=== PATIENT | female | born 1965 | race Caucasian/White ===

== ENCOUNTER 2016-12-03 11:28 | Inpatient (IN) | payer OTHER ==
[2016-12-03] MEDS ORDERED: IBUPROFEN IV 600 MG in SODIUM CHLORIDE 0.9% 250 ML IV STA (11:56)
[2016-12-03] MEDS ORDERED: ACETAMINOPHEN IV (For NPO) 1,000 MG in EMPTY BAG 1 BAG IVPB STA (11:56)
[2016-12-03] MEDS ORDERED: LEVOFLOXACIN 750MG-D5W PMX 750 MG in DEXTROSE/WATER 1 150ML.BAG IVPB STA (11:56)
--- NOTE | 2016-12-03 11:58 | ED ---
General Adult HPI - General Chief complaint: Fever Stated complaint: Dx bronchitis, not feeling better, abdominal pain Time Seen by Provider: 12/03/16 11:35 Source: patient, family, RN notes reviewed Mode of arrival: wheelchair Limitations: no limitations - History of Present Illness Initial comments: This is a 51-year-old female who presents to the emergency Department complaining that the last 3 days she's had a fever congestion and a cough. Patient states she was given antibiotics for bronchitis but she seems to be getting worse. Patient states her whole body aches she is unable to eat she does have a sore throat as well. Patient denies any lightheadedness dizziness or near syncopal episode. Patient denies any chest pain or palpitations. Patient denies any abdominal pain patient states she does vomit occasionally but only after a coughing fit. Patient denies any diarrhea. Patient denies any dysuria hematuria urinary frequency. - Related Data Home Medications Medication Instructions Recorded Confirmed Azithromycin [Zithromax Z-pack] See Taper PO DIRECTED 12/03/16 12/03/16 Ergocalciferol [Vitamin D2] 50,000 unit PO TABARES 12/03/16 12/03/16 Ibuprofen [Motrin] 200 mg PO Q6HR PRN 12/03/16 12/03/16 Naltrexone HCl/Bupropion HCl 1 tab PO DAILY 12/03/16 12/03/16 [Contrave ER 8-90 mg Tablet] Allergies Allergy/AdvReac Type Severity Reaction Status Date / Time No Known Allergies Allergy Verified 12/03/16 12:45 Review of Systems ROS Statement: Those systems with pertinent positive or pertinent negative responses have been documented in the HPI. ROS Other: All systems not noted in ROS Statement are negative. Past Medical History Additional Past Medical History / Comment(s): vit D deficientcy. diet pill History of Any Multi-Drug Resistant Organisms: None Reported Past Surgical History: Section, Cholecystectomy Past Psychological History: No Psychological Hx Reported Smoking Status: Current every day smoker Past Alcohol Use History: None Reported Past Drug Use History: None Reported General Exam - General Exam Comments Initial Comments: GENERAL: Patient is well-developed and well-nourished. Patient is nontoxic and well- hydrated and is in moderate distress. ENT: Neck is soft and supple. No significant lymphadenopathy is noted. Oropharynx is clear. Moist mucous membranes. Neck has full range of motion without eliciting any pain. EYES: The sclera were anicteric and conjunctiva were pink and moist. Extraocular movements were intact and pupils were equal round and reactive to light. Eyelids were unremarkable. PULMONARY: Patient has crackles in the right middle and lower lobes CARDIOVASCULAR: Patient is tachycardic ABDOMEN: Soft and nontender with normal bowel sounds. No palpable organomegaly was noted. There is no palpable pulsatile mass. SKIN: Skin is clear with no lesions or rashes and otherwise unremarkable. NEUROLOGIC: Patient is alert and oriented x3. Cranial nerves II through XII are grossly intact. Motor and sensory are also intact. Normal speech, volume and content. Symmetrical smile. MUSCULOSKELETAL: Normal extremities with adequate strength and full range of motion. No lower extremity swelling or edema. No calf tenderness. LYMPHATICS: No significant lymphadenopathy is noted PSYCHIATRIC: Normal psychiatric evaluation. Normal interpersonal interactions appears functionally intact in deals appropriately with others. No signs of depression. No signs of anxiety. Limitations: no limitations Course Vital Signs 12/03/16 12/03/16 12/03/16 11:38 12:27 13:27 Temperature 103.7 F H 101.1 F H Pulse Rate 95 75 Respiratory 20 18 20 Rate Blood Pressure 131/55 99/54 O2 Sat by Pulse 96 95 Oximetry Medical Decision Making - Medical Decision Making EKG shows normal sinus rhythm at 86 bpm WV interval is 148 QRS is 88 QT interval 368 QTC is 440. Patient's EKG shows no ST segment elevation or depression or T-wave abnormalities noted X-ray shows right lower lobe pneumonia. Started the patient on Levaquin. I gave the patient 2 L of fluid. About the patient's fever down with Motrin Tylenol and the patient states she feels considerably better. - Lab Data Result diagrams: 12/03/16 11:50 12/03/16 11:50 Lab Results 12/03/16 12/03/16 12/03/16 Range/Units 11:50 11:50 11:50 WBC 10.9 H (3.8-10.6) k/uL RBC 4.99 (3.80-5.40) m/uL Hgb 14.5 (11.4-16.0) gm/dL Hct 42.0 (34.0-46.0) % MCV 84.2 (80.0-100.0) fL MCH 29.0 (25.0-35.0) pg MCHC 34.4 (31.0-37.0) g/dL RDW 13.6 (11.5-15.5) % Plt Count 270 (150-450) k/uL Neutrophils % 81 % Lymphocytes % 12 % Monocytes % 6 % Eosinophils % 0 % Basophils % 0 % Neutrophils # 8.7 H (1.3-7.7) k/uL Lymphocytes # 1.3 (1.0-4.8) k/uL Monocytes # 0.6 (0-1.0) k/uL Eosinophils # 0.0 (0-0.7) k/uL Basophils # 0.0 (0-0.2) k/uL PT (9.0-12.0) sec INR (<1.1) APTT (22.0-30.0) sec Sodium 137 (137-145) mmol/L Potassium 3.9 (3.5-5.1) mmol/L Chloride 105 (98-107) mmol/L Carbon Dioxide 20 L (22-30) mmol/L Anion Gap 12 mmol/L BUN 12 (7-17) mg/dL Creatinine 0.62 (0.52-1.04) mg/dL Est GFR (MDRD) Af Amer >60 (>60 ml/min/1.73 sqM) Est GFR (MDRD) Non-Af >60 (>60 ml/min/1.73 sqM) Glucose 116 H (74-99) mg/dL Plasma Lactic Acid Wilmer (0.7-2.0) mmol/L Calcium 8.9 (8.4-10.2) mg/dL Total Bilirubin 0.9 (0.2-1.3) mg/dL AST 27 (14-36) U/L ALT 29 (9-52) U/L Alkaline Phosphatase 94 (38-126) U/L Total Creatine Kinase 116 (30-135) U/L CK-MB (CK-2) 0.3 (0.0-2.4) ng/mL CK-MB (CK-2) Rel Index 0.3 Troponin I <0.012 (0.000-0.034) ng/mL Total Protein 7.9 (6.3-8.2) g/dL Albumin 4.2 (3.5-5.0) g/dL Influenza Type A RNA (Not Detectd) Influenza Type B (PCR) (Not Detectd) 12/03/16 12/03/16 12/03/16 Range/Units 11:50 11:50 12:12 WBC (3.8-10.6) k/uL RBC (3.80-5.40) m/uL Hgb (11.4-16.0) gm/dL Hct (34.0-46.0) % MCV (80.0-100.0) fL MCH (25.0-35.0) pg MCHC (31.0-37.0) g/dL RDW (11.5-15.5) % Plt Count (150-450) k/uL Neutrophils % % Lymphocytes % % Monocytes % % Eosinophils % % Basophils % % Neutrophils # (1.3-7.7) k/uL Lymphocytes # (1.0-4.8) k/uL Monocytes # (0-1.0) k/uL Eosinophils # (0-0.7) k/uL Basophils # (0-0.2) k/uL PT 11.3 (9.0-12.0) sec INR 1.1 (<1.1) APTT 30.7 H (22.0-30.0) sec Sodium (137-145) mmol/L Potassium (3.5-5.1) mmol/L Chloride (98-107) mmol/L Carbon Dioxide (22-30) mmol/L Anion Gap mmol/L BUN (7-17) mg/dL Creatinine (0.52-1.04) mg/dL Est GFR (MDRD) Af Amer (>60 ml/min/1.73 sqM) Est GFR (MDRD) Non-Af (>60 ml/min/1.73 sqM) Glucose (74-99) mg/dL Plasma Lactic Acid Wilmer 1.7 (0.7-2.0) mmol/L Calcium (8.4-10.2) mg/dL Total Bilirubin (0.2-1.3) mg/dL AST (14-36) U/L ALT (9-52) U/L Alkaline Phosphatase (38-126) U/L Total Creatine Kinase (30-135) U/L CK-MB (CK-2) (0.0-2.4) ng/mL CK-MB (CK-2) Rel Index Troponin I (0.000-0.034) ng/mL Total Protein (6.3-8.2) g/dL Albumin (3.5-5.0) g/dL Influenza Type A RNA Not Detected (Not Detectd) Influenza Type B (PCR) Not Detected (Not Detectd) Disposition Clinical Impression: Pneumonia Disposition: ADMITTED IP TO THIS HOSP Referrals: Elmer Maxwell MD [Primary Care Provider] - 1-2 days Time of Disposition: 14:05
[2016-12-03] MEDS: SODIUM CHLORIDE 0.9% 500 ML IV SCH ×4 (12:08→13:25)
[2016-12-03 12:15] LABS: Basophils % (A) 0 %; CH 29.4; CHCM 35.1; Eosinophils % (A) 0 %; HDW 2.71; HGB 14.5 gm/dL (11.4-16.0); Luc # (Auto) 0.17; Luc % (Auto) 2; Lymphocytes # (A) 1.3 k/uL (1.0-4.8); Lymphocytes % (A) 12 %; MCHC 34.4 g/dL (31.0-37.0); MCV 84.2 fL (80.0-100.0); Mean Platelet Volume 6.9; Monocytes # (A) 0.6 k/uL (0-1.0); Monocytes % (A) 6 %; Neutrophils # (A) 8.7 k/uL (1.3-7.7); Neutrophils % (A) 81 %; RBC 4.99 m/uL (3.80-5.40); RDW 13.6 % (11.5-15.5); WBC 10.9 k/uL (3.8-10.6); WBC (Perox) 9.93
[2016-12-03 12:25] LABS: ALT 29 U/L (9-52); AST 27 U/L (14-36); Alkaline Phosphatase 94 U/L (38-126); Anion Gap 12 mmol/L; Blood Urea Nitrogen 12 mg/dL (7-17); Calcium 8.9 mg/dL (8.4-10.2); Carbon Dioxide 20 mmol/L (22-30); Chloride 105 mmol/L (98-107); Glucose 116 mg/dL (74-99); INR 1.1 (<1.1); Non-African American GFR(MDRD) >60 (>60 ml/min/1.73 sqM); Partial Thromboplastin Time 30.7 sec (22.0-30.0); Potassium 3.9 mmol/L (3.5-5.1); Prothrombin Time 11.3 sec (9.0-12.0); Sodium 137 mmol/L (137-145); Total Bilirubin 0.9 mg/dL (0.2-1.3); Total Protein 7.9 g/dL (6.3-8.2)
--- NOTE | 2016-12-03 12:35 | XR ---
EXAMINATION TYPE: XR chest 2V DATE OF EXAM: 12/03/2016 COMPARISON: NONE TECHNIQUE: PA and lateral views submitted. HISTORY: Fever FINDINGS: The lungs are clear and there is no pneumothorax, pleural effusion, or focal pneumonia. Subsegmenta l changes involving the right lung base compatible with scarring or atelectasis. Hypertrophic change of the spine. IMPRESSION: 1. No acute process.
[2016-12-03 12:52] LABS: Creatine Kinase 116 U/L (30-135)
[2016-12-03 13:03] LABS: Creatine Kinase MB 0.3 ng/mL (0.0-2.4); Troponin I <0.012 ng/mL (0.000-0.034)
[2016-12-03] MEDS ORDERED: PNEUMONIA PROTOCOL UTILIZED 1 EACH MISC PO PRN (14:09)
[2016-12-03 15:24] VITALS: RESP 16; TEMP 98.7
[2016-12-03 15:25] VITALS: BP 100/69; PULSE 70
[2016-12-03 15:33] VITALS: BMI 32.9
[2016-12-03] MEDS ORDERED: SODIUM CHLORIDE 0.9% 1,000 ML IV ONE (16:13)
[2016-12-03] MEDS ORDERED: SODIUM CHLORIDE 0.9% 1,000 ML IV SCH (16:15)
[2016-12-03 17:51] LABS: Appearance,Urine Clear (Clear); Bilirubin,Urine Negative (Negative); Glucose,Urine (UA) Negative (Negative); Ketones,Urine Negative (Negative); Leukocyte Esterase,Urine Negative (Negative); Mucus,Urine Rare /hpf; Nitrite,Urine Negative (Negative); Particle Count 2320; Protein,Urine Trace (Negative); RBC,Urine 1 /hpf (0-5); Squamous Epithelial Cell,Urine 2 /hpf (0-4); UA Billing (MACRO vs. MICRO) MICRO; Urobilinogen,Urine <2.0 mg/dL (<2.0); WBC,Urine 1 /hpf (0-5)
--- NOTE | 2016-12-04 08:35 | HP ---
DATE OF ADMISSION: This dictation is both H&P and discharge summary. Patient is a 51-year-old pleasant female who came into the emergency department with fever. Patient apparently at some point of time had a high-grade fever. The patient's symptoms have been going on for about a week. Patient had fever, cough, congestion that has been going on for about a week. The patient was seen in [facility], was diagnosed with bronchitis and was sent home on azithromycin. Patient did not have any significant improvement. When asked to come back to the hospital, patient came back to the hospital this time and patient had a chest x-ray that showed some atelectasis. Did not show any pneumonic process. Patient did have a low-grade fever and patient has severe sinusitis like symptoms. The patient's influenza test is negative. Patient is undergoing evaluation. Group B strep cultures were being obtained. The patient initially wanted to send her home on Augmentin, but patient felt much better with levofloxacin IV because of which I am discharging her on levofloxacin for 7 more days for severe bronchitis, sinusitis and patient does have rhonchorous breath sounds and minimal expiratory wheezing, for which I am going to discharge her. The patient may have undiagnosed chronic obstructive pulmonary disease for which patient will need outpatient pulmonary function tests. Patient will be discharged on Symbicort inhalational along with albuterol. Patient denied any lightheadedness. The patient was coughing with greenish sputum. Does have sore throat. Denied any dysuria, hematuria or urinary frequency. Home medications include: Erythromycin, ergocalciferol, ibuprofen, naltrexone. ROS: All other systems were reviewed and were negative. ALLERGIES: No known drug allergies. PAST MEDICAL HISTORY: Significant for vitamin deficiency, section, cholecystectomy. The patient does smoke. Denied any alcohol abuse or any drug abuse. FAMILY HISTORY: Significant for some kind of blood disorder. PHYSICAL EXAMINATION: Temperature 98.7, pulse of 78, respiratory rate of 16. Blood pressure is 108/51, saturating at 99% on room air. GENERAL: The patient is alert and oriented x3, not in any acute distress. Well developed, well nourished. HEENT: Patient does have severe sinus symptoms. Patient has pharyngeal erythema. Patient does not have any tonsillar exudate. Patient has tenderness in the maxillary sinusitis area. Patient looks to be congested. CARDIOVASCULAR: S1 and S2 present. No murmurs, rubs, or gallops. PULMONARY: Rhonchus breath sounds bilaterally, minimal expiratory wheezing was appreciated. Fairly good air entry into bilateral lung george. No crackles were appreciated. ABDOMEN: Soft, nontender, nondistended, normoactive bowel sounds. No palpable organomegaly. MUSCULOSKELETAL: No joint swelling or deformity. EXTREMITIES: No cyanosis, clubbing, or pedal edema. NEUROLOGICAL: Gross neurological examination did not reveal any focal deficits. SKIN: No rashes. LABORATORY DATA: CBC and CMP are abnormal for elevated WBC count of 10,900. Patient had a low-grade fever here in the hospital. Chest x-ray as mentioned above. ASSESSMENT AND PLAN: 1. Severe bronchitis with a possibility of mild chronic obstructive pulmonary disease with very minimal exacerbation. I do not believe patient will need any other systemic steroids. Patient since improved with levofloxacin will be discharged on that. 2. Severe bronchitis and severe sinusitis. Patient failed outpatient therapy with erythromycin. Will be discharged on levofloxacin 500 mg for 7 days. Follow up with Dr. Elmer Maxwell as an outpatient. Patient will be discharged on famotidine for GI prophylaxis as well. 3. Leukocytosis due to sinusitis and bronchitis as mentioned above. 4. Nicotine cessation counseling was provided. This dictation is both H&P and discharge summary. MTDD
[2016-12-04] MEDS ORDERED: LEVOFLOXACIN 750MG-D5W PMX 750 MG in DEXTROSE/WATER 1 150ML.BAG IVPB SCH (12:00)
== END 2016-12-03 17:52 | disposition home or self-care (01) | DRG 202 ==
LOC: EC 11:28 → 5MS5E 14:09
PROVIDERS: ADMIT Hospitalist; ATTEND Hospitalist
DX: J40 Bronchitis, not specified as acute or chronic (principal); J98.11 Atelectasis; J44.1 Chronic obstructive pulmonary disease with (acute) exacerbation; F17.200 Nicotine dependence, unspecified, uncomplicated; J32.9 Chronic sinusitis, unspecified; J02.9 Acute pharyngitis, unspecified; Z79.899 Other long term (current) drug therapy
CPT/HCPCS: 36415; 71020; 80048; 80053; 81001; 82550; 82553; 83036; 83605; 84484; 85025; 85027; 85610; 85730; 87040; 87081; 87086; 87502; 93005; 94640; 94760; 96365; 96367; 96372; 96375; 99285

== ENCOUNTER 2016-12-04 19:53 | Inpatient (IN) | payer OTHER ==
[2016-12-04] MEDS ORDERED: ACETAMINOPHEN TAB 500 MG TAB PO STA (20:48)
[2016-12-04] MEDS ORDERED: LEVOFLOXACIN 500MG-D5W PMX 500 MG in DEXTROSE/WATER 1 100ML.BAG IVPB STA (21:10)
[2016-12-04] MEDS ORDERED: IPRATROPIUM-ALBUTEROL 3 ML NEB INHALATION STA (21:12)
[2016-12-04 21:14] LABS: Basophils % (A) 0 %; CH 29.1; Eosinophils % (A) 0 %; HCT 35.7 % (34.0-46.0); HDW 2.86; HGB 12.3 gm/dL (11.4-16.0); Luc # (Auto) 0.15; Luc % (Auto) 2; Lymphocytes # (A) 1.3 k/uL (1.0-4.8); Lymphocytes % (A) 15 %; MCH 28.6 pg (25.0-35.0); MCHC 34.3 g/dL (31.0-37.0); MCV 83.5 fL (80.0-100.0); Monocytes # (A) 0.3 k/uL (0-1.0); Monocytes % (A) 4 %; Neutrophils # (A) 6.5 k/uL (1.3-7.7); Neutrophils % (A) 79 %; RBC 4.28 m/uL (3.80-5.40); RDW 13.5 % (11.5-15.5); WBC 8.3 k/uL (3.8-10.6); WBC (Perox) 8.72
[2016-12-04] MEDS ORDERED: NALOXONE 0.4 MG/ML 1 ML VIAL IV PRN (21:15)
--- NOTE | 2016-12-04 21:15 | ED ---
General Adult HPI - General Chief complaint: Fever Stated complaint: Fever/Congestion Source: patient, family, RN notes reviewed, old records reviewed Mode of arrival: ambulatory Limitations: no limitations - History of Present Illness Initial comments: Chief complaint history of present illness this is a 51-year-old female who was in hospital for one day 2 days ago. at That time she was diagnosed with severe bronchitis and sinusitis. She improved to the 24 hours she was here she was given the option of going home if she is able to walk the length of the hallway which she was able to do without difficulties and decided to go home. She was placed on Levaquin to go home with but because the pharmacies were closed she was unable to fill it. She had just earlier completed a course of a Zithromax and. She presents back tonight with a cough, fever, and exacerbation of her COPD type symptoms. - Related Data Home Medications Medication Instructions Recorded Confirmed Ergocalciferol [Vitamin D2] 50,000 unit PO TABARES 12/03/16 12/04/16 Ibuprofen [Motrin] 200 mg PO Q6HR PRN 12/03/16 12/04/16 Naltrexone HCl/Bupropion HCl 1 tab PO DAILY 12/03/16 12/04/16 [Contrave ER 8-90 mg Tablet] Previous Rx's Medication Instructions Recorded Albuterol Inhaler [Ventolin Hfa 1 - 2 puff INHALATION Q6HR PRN #1 12/03/16 Inhaler] inhaler Budesonide-Formot 160-4.5 Mcg 2 puff INHALATION BID #1 inhaler 12/03/16 [Symbicort 160-4.5 Mcg Inhaler] Famotidine [Pepcid] 20 mg PO BID #30 tablet 12/03/16 Levofloxacin [Levaquin] 500 mg PO DAILY #7 tab 12/03/16 Allergies Allergy/AdvReac Type Severity Reaction Status Date / Time No Known Allergies Allergy Verified 12/04/16 20:03 Review of Systems ROS Statement: Those systems with pertinent positive or pertinent negative responses have been documented in the HPI. Review of systems. Patient denies any headache or visual acuity changes of a sore throat which was negative for strep in the day. Denies chest pain but she has chest wall pain from coughing. She has persistent wheezing bilaterally and some crepitant rales on the right base. Abdominal muscles are tender from coughing. No peripheral edema. No other complaints of a neuro deficits. All systems are reviewed. Past medical problems significant for probable COPD. She has a vitamin D deficiency. Past history of pneumonia. Surgeries include a and cholecystectomy. Family history noncontributory. No known ALLERGIES. Patient quit smoking 3 days ago. Encouraged to stay on nonsmoker. ROS Other: All systems not noted in ROS Statement are negative. Past Medical History Additional Past Medical History / Comment(s): vit D deficientcy. diet pill. no medical history as of this date. pneumonia History of Any Multi-Drug Resistant Organisms: None Reported Past Surgical History: Section, Cholecystectomy Past Psychological History: No Psychological Hx Reported Smoking Status: Current every day smoker Past Alcohol Use History: None Reported Past Drug Use History: None Reported - Past Family History Father Family Medical History: Blood Disorder Mother Family Medical History: Dementia General Exam - General Exam Comments Initial Comments: General: The patient is awake and alert, complaining of a fever 102.3. Harsh cough, short of breath with the cough. Vital signs pulse 85 respiratory rate 20 pulse ox 97% room air blood pressure 100/57 Eye: Pupils are equal, round and reactive to light, extra-ocular movements are intact ; there is normal conjunctiva bilaterally. No signs of icterus. Ears, nose, mouth and throat: There are moist mucous membranes and no oral lesions. Sore uvula mildly red strep -2 days ago. Neck: The neck is supple, there is no tenderness , no anterior cervical lymphadenopathy.. Cardiovascular: There is a regular rate and rhythm. No murmur, rub or gallop is appreciated. Respiratory: Bilateral wheezing. Rare crepitant rales at the bases. Gastrointestinal: Soft, non-distended, non-tender abdomen without masses or organomegaly noted. Mild muscle discomfort with palpation from frequent coughing. There is no rebound or guarding present. No CVA tenderness. Bowel sounds are unremarkable. Back: Right flank pain with coughing. Musculoskeletal: Normal ROM, no tenderness, There is no pedal edema. There is no calf tenderness or swelling. Sensation intact. Pulses equal bilaterally 2+. Neurological: No neuro deficits Skin: Skin is warm and dry and no rashes or lesions are noted. Limitations: no limitations Course Vital Signs 12/04/16 20:00 Temperature 102.3 F H Pulse Rate 85 Respiratory 20 Rate Blood Pressure 109/57 O2 Sat by Pulse 97 Oximetry Medical Decision Making - Medical Decision Making The plant this time patient will be started on IV Levaquin. Given updrafts and IV steroids. Patient's fever was treated with Tylenol at this time. Should be readmitted to the hospital. Disposition Clinical Impression: COPD with acute exacerbation, Fever Disposition: ADMITTED IP TO THIS HOSP Condition: Fair Referrals: Elmer Maxwell MD [Primary Care Provider] - 1-2 days
[2016-12-04 21:22] LABS: ALT 35 U/L (9-52); AST 38 U/L (14-36); Alkaline Phosphatase 66 U/L (38-126); Anion Gap 9 mmol/L; Blood Urea Nitrogen 10 mg/dL (7-17); Carbon Dioxide 18 mmol/L (22-30); Chloride 109 mmol/L (98-107); Glucose 99 mg/dL (74-99); Non-African American GFR(MDRD) >60 (>60 ml/min/1.73 sqM); Potassium 3.5 mmol/L (3.5-5.1); Sodium 136 mmol/L (137-145); Total Bilirubin 0.6 mg/dL (0.2-1.3); Total Protein 6.1 g/dL (6.3-8.2)
[2016-12-04] MEDS ORDERED: methylPREDNISolone SOD SUCCI 125 MG/2 ML VIAL IM SCH (21:30)
[2016-12-04] MEDS: SODIUM CHLORIDE 0.9% 1,000 ML IV SCH (21:30)
--- NOTE | 2016-12-04 21:42 | XR ---
EXAMINATION TYPE: XR chest 2V DATE OF EXAM: 12/04/2016 9:26 PM COMPARISON: 12/03/2016 HISTORY: Congestion and cough TECHNIQUE: Frontal and lateral views of the chest are obtained. FINDINGS: There is linear density at the right lung base consistent with atelectasis. There is no he art failure. There is mild blunting of right costophrenic angle. Left lung is clear. Bony thorax is i ntact. IMPRESSION: There is atelectasis and pleural reaction at the right lung base that is worse than last exam. No heart failure.
[2016-12-04] MEDS ORDERED: methylPREDNISolone SOD SUCCI 125 MG/2 ML VIAL IVP SCH (21:46)
[2016-12-04 22:13] LABS: Appearance,Urine Clear (Clear); Bilirubin,Urine Negative (Negative); Glucose,Urine (UA) Negative (Negative); Ketones,Urine Negative (Negative); Leukocyte Esterase,Urine Negative (Negative); Mucus,Urine Rare /hpf; Nitrite,Urine Negative (Negative); Particle Count 3073; Protein,Urine 1+ (Negative); RBC,Urine 3 /hpf (0-5); Specific Gravity,Urine 1.016 (1.001-1.035); Squamous Epithelial Cell,Urine <1 /hpf (0-4); UA Billing (MACRO vs. MICRO) MICRO; Urobilinogen,Urine <2.0 mg/dL (<2.0); WBC,Urine 2 /hpf (0-5)
[2016-12-05] MEDS: methylPREDNISolone SOD SUCCI 125 MG/2 ML VIAL IVP SCH ×3 (05:13→21:46)
[2016-12-05 07:03] LABS: Glucose,Whole Blood 171 mg/dL (75-99)
[2016-12-05] MEDS: ACETAMINOPHEN TAB 325 MG TAB PO PRN ×2 (07:22→19:41)
[2016-12-05] MEDS: SODIUM CHLORIDE 0.9% 1,000 ML IV SCH ×2 (07:24→17:42)
[2016-12-05] MEDS ORDERED: PANTOPRAZOLE 40 MG/10 ML VIAL IV SCH (09:00)
[2016-12-05] MEDS: ALBUTEROL NEBULIZED 2.5 MG/3 ML INHALATION PRN ×2 (09:05→20:30)
[2016-12-05] MEDS: SYMBICORT 160-4.5 MCG INHALER INHALATION SCH ×2 (09:05→20:31)
[2016-12-05 11:49] LABS: Glucose,Whole Blood 243 mg/dL (75-99)
[2016-12-05] MEDS ORDERED: INSULIN LISPRO (humaLOG) 300 UNIT/3 ML VIAL SQ ONE (12:03)
[2016-12-05] MEDS: guaiFENesin SYRUP 100MG/5ML 200 MG/10 ML CUP PO PRN ×2 (16:30→22:30)
[2016-12-05 16:54] LABS: Glucose,Whole Blood 149 mg/dL (75-99)
[2016-12-05] MEDS: INSULIN LISPRO (humaLOG) 300 UNIT/3 ML VIAL SQ SCH ×2 (17:41→22:30)
[2016-12-05 20:54] LABS: Glucose,Whole Blood 135 mg/dL (75-99)
[2016-12-05] MEDS ORDERED: LEVOFLOXACIN 500MG-D5W PMX 500 MG in DEXTROSE/WATER 1 100ML.BAG IVPB SCH (21:30)
--- NOTE | 2016-12-05 21:43 | HP ---
DATE OF ADMISSION: 12/04/2016 Patient was recently admitted in the hospital, recently discharged from hospital. 51-year-old female who came in with fever, during that time I diagnosed with sinusitis and severe bronchitis. I gave her Levofloxacin and breathing treatments. Patient was discharged home, but patient at that time we verified pharmacy whether her pharmacy was opened or not. I was told her pharmacy was opened until 8:30 and patient was subsequently given prescriptions was discharged home. Since her pharmacy was closed by the time she went home, she never filled the scripts and apparently the staff call the staff here and they asked her to come back to the ER and patient came back to the ER. Patient was found to be high-grade fever and patient was subsequently admitted again with levofloxacin and systemic steroids inhalational treatments. Patient does have shortness of breath. REVIEW OF SYSTEMS: GENERAL: As described in HPI. HEENT: No recent visual problems or hearing problems. Denied any sore throat. CARDIOVASCULAR: No chest pain, orthopnea, PND, no palpitations, no syncope. PULMONARY: As described in HPI. GASTROINTESTINAL: No diarrhea, no nausea, no vomiting, no abdominal pain. Normoactive bowel sounds. NEUROLOGICAL: No headaches, no weakness, no numbness. HEMATOLOGICAL: Denies any bleeding or petechiae. GENITOURINARY: Denies any burning micturition, frequency, or urgency. MUSCULOSKELETAL/RHEUMATOLOGICAL: Denies any joint pain, swelling, or any muscle pain. ENDOCRINE: Denies any polyuria or polydipsia. The rest of the 14 point review of systems is negative. Home medications included: 1. Ergocalciferol. 2. Ibuprofen. 3. Naltrexone. Patient was discharged on albuterol, ipratropium, budesonide, famotidine and levofloxacin. ALLERGIES: No known drug allergies. PAST MEDICAL HISTORY: Significant for vitamin D deficiency. section, cholecystectomy. The patient does smoke. Denied any alcohol abuse or any drug abuse. FAMILY HISTORY: Some kind of blood disorder in the family. PHYSICAL EXAMINATION: Temperature 100.1, 24-hour T-max is 100.4, pulse of 84, respiratory rate of 18, blood pressure is 140/68, saturating at 96% on room air. GENERAL: The patient is alert and oriented x3, not in any acute distress. Well developed, well nourished. HEENT: Patient does have sinusitis, and patient does have pharyngeal erythema as well. Patient strep throat culture is negative for group B streptococcus. CARDIOVASCULAR: S1 and S2 present. No murmurs, rubs, or gallops. PULMONARY: Patient has rhonchus breath sounds. Minimal expiratory wheezing was appreciated. ABDOMEN: Soft, nontender, nondistended, normoactive bowel sounds. No palpable organomegaly. MUSCULOSKELETAL: No joint swelling or deformity. EXTREMITIES: No cyanosis, clubbing, or pedal edema. NEUROLOGICAL: Gross neurological examination did not reveal any focal deficits. SKIN: No rashes. LABORATORY DATA: CBC, CMP are abnormal for elevated chloride of 109, bicarbonate of 18, low bicarbonate is secondary to hyperchloremia and the chest x-ray showed atelectasis without any pneumonic process. ASSESSMENT AND PLAN: 1. Sepsis secondary to severe bronchitis and sinusitis. Patient does have atelectasis. No clear cut pneumonia. Patient improved with levofloxacin in the past because of which we will continue the same medication. Patient came back to the hospital as she is unable to fill the scripts at home. 2. Chronic obstructive pulmonary disease with some exacerbation. Patient will be on systemic steroids, inhalational treatments. 3. Hyperchloremia leading to metabolic acidosis. Patient continues to have hypochloremia on IV fluids and needs to switch it to half normal saline or lactated Ringer's. 4. ( ) Leukocytosis.
[2016-12-05] MEDS: LEVOFLOXACIN 500 MG TAB PO SCH (21:46)
[2016-12-06] MEDS: SODIUM CHLORIDE 0.9% 1,000 ML IV SCH (06:16)
[2016-12-06] MEDS: methylPREDNISolone SOD SUCCI 125 MG/2 ML VIAL IVP SCH (06:16)
[2016-12-06 07:37] LABS: Glucose,Whole Blood 136 mg/dL (75-99)
[2016-12-06] MEDS: ALBUTEROL NEBULIZED 2.5 MG/3 ML INHALATION PRN (07:43)
[2016-12-06] MEDS: SYMBICORT 160-4.5 MCG INHALER INHALATION SCH ×2 (07:44→20:00)
[2016-12-06] MEDS: PANTOPRAZOLE 40 MG TABLET PO SCH (08:16)
[2016-12-06] MEDS: INSULIN LISPRO (humaLOG) 300 UNIT/3 ML VIAL SQ SCH ×4 (08:16→22:00)
[2016-12-06 08:55] LABS: CH 28.6; CHCM 34.1; HCT 33.8 % (34.0-46.0); HDW 3.21; HGB 11.1 gm/dL (11.4-16.0); MCH 27.9 pg (25.0-35.0); MCV 84.6 fL (80.0-100.0); Mean Platelet Volume 6.9; RBC 3.99 m/uL (3.80-5.40); WBC 14.2 k/uL (3.8-10.6)
[2016-12-06 09:06] LABS: Anion Gap 9 mmol/L; Blood Urea Nitrogen 9 mg/dL (7-17); Calcium 7.9 mg/dL (8.4-10.2); Carbon Dioxide 20 mmol/L (22-30); Chloride 112 mmol/L (98-107); Glucose 144 mg/dL (74-99); Non-African American GFR(MDRD) >60 (>60 ml/min/1.73 sqM); Potassium 3.4 mmol/L (3.5-5.1); Sodium 141 mmol/L (137-145)
[2016-12-06] MEDS ORDERED: POTASSIUM CHLORIDE ER 20 MEQ TAB.ER PO STA (09:53)
[2016-12-06] MEDS: guaiFENesin SYRUP 100MG/5ML 200 MG/10 ML CUP PO PRN ×2 (10:31→22:08)
[2016-12-06 11:57] LABS: Glucose,Whole Blood 146 mg/dL (75-99)
[2016-12-06 13:06] LABS: Hemoglobin A1C 6.1 % (4.2-6.1)
[2016-12-06] MEDS: methylPREDNISolone SOD SUCCI 40 MG/ML 1 ML VIAL IV SCH (13:51)
[2016-12-06] MEDS: ENOXAPARIN 40 MG/0.4 ML SYRINGE SQ SCH (13:51)
[2016-12-06] MEDS: NICOTINE 21MG/24HR PATCH TRANSDERM SCH (13:51)
[2016-12-06] MEDS: ACETAMINOPHEN TAB 325 MG TAB PO PRN ×2 (13:59→22:08)
[2016-12-06] MEDS: IPRATROPIUM-ALBUTEROL 3 ML NEB INHALATION SCH ×3 (14:22→20:00)
--- NOTE | 2016-12-06 15:07 | XR ---
EXAMINATION TYPE: XR chest 2V DATE OF EXAM: 12/06/2016 COMPARISON: Prior chest x-ray 12/04/2016 HISTORY: Fever TECHNIQUE: Frontal and lateral views of the chest are obtained. FINDINGS: Bilateral airspace disease is present. No evident pneumothorax or pleural effusion. Cardia c mediastinal silhouette, pulmonary vascularity and cody are stable. IMPRESSION: Correlate for pulmonary edema, pneumonia
[2016-12-06 17:16] LABS: Glucose,Whole Blood 145 mg/dL (75-99)
[2016-12-06 21:03] LABS: Glucose,Whole Blood 200 mg/dL (75-99)
[2016-12-06] MEDS: LEVOFLOXACIN 500 MG TAB PO SCH (22:00)
[2016-12-07] MEDS: methylPREDNISolone SOD SUCCI 40 MG/ML 1 ML VIAL IV SCH ×2 (00:52→11:53)
--- NOTE | 2016-12-07 05:03 | PN ---
DATE OF SERVICE: 12/06/2016 PRESENTING COMPLAINT: Severe cough and fever. INTERVAL HISTORY: This is a patient who was recently admitted for sepsis secondary to severe bronchitis and sinusitis. Patient continues to have intermittent fever. Patient's white count today has been elevated. Patient stated this morning on exam that she felt "pretty good". She said she slept well. She does complain, however, of a cough that is causing her abdominal muscles to be sore. Review of systems done for constitutional, cardiovascular, GI, pulmonary with relevant findings as above. CURRENT MEDICATIONS: Levaquin 500 mg p.o. at bedtime, Solu-Medrol 40 mg IV q.12 hours, Habitrol 21 mg/24-hour patch q. day. PHYSICAL EXAMINATION: VITAL SIGNS: Temperature 98.0, pulse 78, respiratory rate 14, blood pressure 121/74, oxygen saturation 93% on 2 L nasal cannula. GENERAL APPEARANCE: Patient sitting up in the chair, at the bedside. Looks bright, alert, no distress noted. EYES: Pupils equal. Conjunctivae normal. NECK: JVD not raised. Mass not palpable. LUNGS: Diminished with faint crackles scattered throughout bilaterally. RESPIRATORY: Effort normal. CARDIOVASCULAR: First and second sounds noted. No edema. ABDOMEN: Soft, nontender. Bowel sounds x4. Liver and spleen not palpable. PSYCHIATRY: Alert and oriented x3. Mood and affect are normal. INVESTIGATIONS: White blood cell count 14.2 up from 8.3 previous day. Potassium 3.4 for which she received supplementation. Chest x-ray bilateral airspace disease present. No pleural effusion or pneumothorax. ASSESSMENT: 1. Sepsis secondary to severe bronchitis and sinusitis. 2. Chronic obstructive pulmonary disease in a current smoker, acute exacerbation. 3. Hyperchloremia leading to metabolic acidosis. 4. Steroid-induced hyperglycemia. PLAN: Patient will be continued on Levaquin. Patient encouraged to cough and deep breathe. Patient additionally was counseled extensively on smoking cessation. Nicotine patches and gum were provided to the patient. Patient will also be continued on steroids. Dose was tapered today. Blood sugars will continue to be monitored throughout the patient's stay. Patient is continued on a IV fluids for hyperchloremia. Will continue to follow closely. Patient was seen and examined by nurse practitioner, Molly Allen, and all elements of the case discussed with the attending, Dr. Miller.
[2016-12-07] MEDS: SYMBICORT 160-4.5 MCG INHALER INHALATION SCH ×2 (07:29→20:10)
[2016-12-07] MEDS: IPRATROPIUM-ALBUTEROL 3 ML NEB INHALATION SCH ×4 (07:29→20:11)
[2016-12-07 07:49] LABS: Glucose,Whole Blood 122 mg/dL (75-99)
[2016-12-07] MEDS: INSULIN LISPRO (humaLOG) 300 UNIT/3 ML VIAL SQ SCH ×4 (07:54→22:41)
[2016-12-07] MEDS: NICOTINE 21MG/24HR PATCH TRANSDERM SCH (08:55)
[2016-12-07] MEDS: ENOXAPARIN 40 MG/0.4 ML SYRINGE SQ SCH (08:56)
[2016-12-07] MEDS: PANTOPRAZOLE 40 MG TABLET PO SCH (08:57)
--- NOTE | 2016-12-07 10:21 | XR ---
EXAMINATION TYPE: XR chest 2V DATE OF EXAM: 12/07/2016 HISTORY: rhonchi, followup. REFERENCE: Previous study dated 12/06/2016. FINDINGS: There is slight worsening in the alveolar airspace disease present bilaterally. Heart size is upper limits of normal. Pleural spaces are clear. Pulmonary vasculature is obscured. IMPRESSION: SLIGHT WORSENING IN THE PATIENT'S ALVEOLAR AIRSPACE DISEASE. THIS MAY REPRESENT PULMONARY EDEMA, EITH ER CARDIAC OR NONCARDIAC. PNEUMONIA WOULD ALSO BE A DIAGNOSTIC POSSIBILITY.
[2016-12-07] MEDS: PIPERACILLIN-TAZOBACTAM 3.375 GM in DEXTROSE/WATER 1 50ML.BAG IVPB SCH ×2 (10:44→15:46)
--- NOTE | 2016-12-07 11:25 | PN ---
DATE OF SERVICE: 12/06/2016 ATTENDING NOTE: This patient was seen and examined by me on 12/06/2016. I reviewed the note of my nurse practitioner, Ms. Allen, and discussed additional things as below. This is a patient who is a smoker presented with COPD exacerbation and sepsis due to severe tracheobronchitis. Patient still having bouts of coughing, did tolerate some diet, sitting up. Family is at the bedside including . On examination, the patient did spike a fever. LUNGS: Decreased breath sounds. Mild wheezing. ABDOMEN: Soft, nontender. PSYCHIATRY: Alert and oriented x3. INVESTIGATIONS: White count 14.2. Potassium 3.4. Accu-Cheks noted. Chest x-ray shows possible infiltrate with ( ) edema. ASSESSMENT: 1. Acute severe chronic obstructive pulmonary disease exacerbation in a current smoker, slow to respond. 2. Possible bilateral pneumonia, consider gram-negative organism. 3. Metabolic acidosis causing hyperchloremia. 4. Hypoglycemia secondary to steroids. 5. Leukocytosis secondary to steroids. 6. Obesity; body mass index of 34.7. 7. Chronic nicotine dependence. Patient is a smoker. PLAN: Care was discussed with the patient at length. Patient will be given nicotine patch. Will scale back the dose of Solu-Medrol and add IV Zosyn.
[2016-12-07 11:50] LABS: Glucose,Whole Blood 120 mg/dL (75-99)
--- NOTE | 2016-12-07 13:38 | P.CNPUL ---
History of Present Illness Consult date: 12/07/16 Requesting physician: Олге Miller Reason for consult: pneumonia Chief complaint: Shortness of breath History of present illness: This is a 51-year-old female patient being seen, evaluated and examined today on the fourth floor. This patient came into the hospital with fever she was diagnosed with sinusitis and severe bronchitis and was discharged home on Levaquin and breathing treatments. The patient went home and never filled her prescriptions and subsequently ended up back in the emergency room and she was noted to have a high-grade fever and was admitted again with levofloxacin and systemic steroids as well as nebulizer treatments. The patient states she had increasing severity of her shortness of breath. She became short of breath with any type of exertion or extensive conversation. Upon examination the patient's resting up in bed on 2 L of supplemental oxygen via nasal cannula. The patient denies any home oxygen use. The patient states she does have a cough that is congested however she has a difficult time bringing up any secretions at this time. The patient is a current every day smoker smokes at least 1 pack per day and she has smoked for over 30 years the patient stated that she quit about 6-7 days ago due to her shortness of breath. Review of Systems 14 point review of systems was completed and is negative other than what's noted in the HPI. Past Medical History Additional Past Medical History / Comment(s): vit D deficientcy. diet pill. pneumonia History of Any Multi-Drug Resistant Organisms: None Reported Past Surgical History: Section, Cholecystectomy Past Psychological History: No Psychological Hx Reported Smoking Status: Current every day smoker Past Alcohol Use History: None Reported Past Drug Use History: None Reported - Past Family History Father Family Medical History: Blood Disorder Mother Family Medical History: Dementia Medications and Allergies Home Medications Medication Instructions Recorded Confirmed Type Ergocalciferol [Vitamin D2] 50,000 unit PO TABARES 12/03/16 12/04/16 History Ibuprofen [Motrin] 200 mg PO Q6HR PRN 12/03/16 12/04/16 History Naltrexone HCl/Bupropion HCl 1 tab PO DAILY 12/03/16 12/04/16 History [Contrave ER 8-90 mg Tablet] Albuterol Inhaler [Ventolin Hfa 1 - 2 puff INHALATION RT-Q6H PRN 12/04/16 History Inhaler] Budesonide-Formot 160-4.5 Mcg 2 puff INHALATION RT-BID 12/04/16 12/04/16 History [Symbicort 160-4.5 Mcg Inhaler] Allergies Allergy/AdvReac Type Severity Reaction Status Date / Time No Known Allergies Allergy Verified 12/04/16 21:21 Physical Exam Vitals: Vital Signs Temp Pulse Pulse Resp BP Pulse Ox 12/07/16 11:22 96 12/07/16 11:12 92 12/07/16 08:00 82 16 12/07/16 07:43 88 12/07/16 07:31 88 12/07/16 07:00 97.3 F L 82 16 146/84 90 L 12/06/16 23:00 98.1 F 84 18 137/65 92 L 12/06/16 20:17 82 12/06/16 20:04 98.7 F 87 18 94 L 12/06/16 20:00 82 12/06/16 15:34 84 12/06/16 15:25 84 18 12/06/16 15:20 82 12/06/16 15:00 99.9 F H 83 14 135/77 91 L 12/06/16 13:57 102.2 F H Intake and Output 12/06/16 12/07/16 12/07/16 22:59 06:59 14:59 Other: Voiding Method Toilet Toilet # Voids 1 1 GENERAL EXAM: Alert, active, comfortable in no apparent distress. HEAD: Normocephalic. EYES: Normal reaction of pupils, equal size. NOSE: Clear with pink turbinates. THROAT: No erythema or exudates. NECK: No masses, no JVD. CHEST: No chest wall deformity. LUNGS: Lungs noted to have decreased air entry. Patient does have some faint scattered rhonchi and minimal expiratory wheezes. ASIS diminished. CVS: S1 and S2 normal with no audible mumurs, regular rhythm. ABDOMEN: No hepatosplenomegaly, normal bowel sounds, no guarding or rigidity. EXTREMITIES: No edema noted, pedal pulses palpable. SKIN: No rashes CENTRAL NERVOUS SYSTEM: No focal deficits, tone is normal in all 4 extremities. Results - Laboratory Findings CBC and BMP: 12/06/16 08:23 12/06/16 08:23 Abnormal lab findings: Abnormal Labs 0512/04/16 12/05/16 20:40 21:50 06:58 WBC Hgb Hct Sodium 136 L Potassium Chloride 109 H Carbon Dioxide 18 L Creatinine Glucose POC Glucose (mg/dL) 171 H Calcium 8.0 L AST 38 H Total Protein 6.1 L Albumin 3.1 L Urine Protein 1+ H Urine Blood Small H Urine Mucus Rare H 12/05/16 12/05/16 12/05/16 11:47 16:40 20:44 WBC Hgb Hct Sodium Potassium Chloride Carbon Dioxide Creatinine Glucose POC Glucose (mg/dL) 243 H 149 H 135 H Calcium AST Total Protein Albumin Urine Protein Urine Blood Urine Mucus 12/06/16 12/06/16 12/06/16 07:35 08:23 08:23 WBC 14.2 H Hgb 11.1 L Hct 33.8 L Sodium Potassium 3.4 L Chloride 112 H Carbon Dioxide 20 L Creatinine 0.48 L Glucose 144 H POC Glucose (mg/dL) 136 H Calcium 7.9 L AST Total Protein Albumin Urine Protein Urine Blood Urine Mucus 12/06/16 12/06/16 12/06/16 11:52 17:14 21:02 WBC Hgb Hct Sodium Potassium Chloride Carbon Dioxide Creatinine Glucose POC Glucose (mg/dL) 146 H 145 H 200 H Calcium AST Total Protein Albumin Urine Protein Urine Blood Urine Mucus 12/07/16 12/07/16 07:05 11:45 WBC Hgb Hct Sodium Potassium Chloride Carbon Dioxide Creatinine Glucose POC Glucose (mg/dL) 122 H 120 H Calcium AST Total Protein Albumin Urine Protein Urine Blood Urine Mucus - Diagnostic Findings Chest x-ray: report reviewed, image reviewed Assessment and Plan Plan: Assessment Acute exacerbation of chronic obstructive pulmonary disease Acute hypoxic respiratory failure Probable bilateral pneumonia, probable mixed gram-negative Tracheobronchitis Metabolic acidosis Leukocytosis Chronic nicotine dependence Obesity Plan Medications have been reviewed and will be continued as ordered. Continue with IV steroids and broad-spectrum antibiotics. We will obtain a sputum culture. Blood cultures pending. We also will put the patient on scheduled Mucinex to help with secretions. Continue with pulmonary hygiene, coughing and deep breathing exercises, and supportive care. Supplemental oxygen to maintain oxygen saturations of 92% or better. Continue nebulizer treatments. GI and DVT prophylaxis. We will continue to monitor labs/results and adjust treatment as necessary. Further recommendations pending. I performed an examination of the patient and discussed their management with the nurse practitioner. I have reviewed the nurse practitioner's note and agree with the documented findings and plan of care.
[2016-12-07] MEDS: guaiFENesin 600 MG TABLET.ER PO SCH ×2 (13:52→22:31)
[2016-12-07 17:03] LABS: Glucose,Whole Blood 134 mg/dL (75-99)
[2016-12-07 20:47] LABS: Glucose,Whole Blood 143 mg/dL (75-99)
--- NOTE | 2016-12-07 21:12 | PN ---
DATE OF SERVICE: 12/07/2016. PRESENTING COMPLAINT: Severe cough and fever. INTERVAL HISTORY: This is a patient who is a smoker presented with COPD exacerbation and sepsis due to severe tracheobronchitis. Today, patient continues to cough. States she has a poor appetite today. Sitting up. Family at the bedside. Review of systems done for constitutional, cardiovascular, GI, pulmonary, with relevant findings as above. CURRENT MEDICATIONS: 1. Zosyn. 2. Solu-Medrol 40 mg IV q.12h. 3. Habitrol 21 mg 24-hour patch daily. PHYSICAL EXAMINATION: VITAL SIGNS: T-max 102.2, today 97.3, pulse 82, respiratory rate 16, blood pressure 146/84, oxygen saturation 90% on 2 liters nasal cannula. GENERAL APPEARANCE: Patient sitting up at the edge of the bed, coughing. No sputum production at this time. EYES: Pupils equal. Conjunctivae normal. NECK: JVD not raised. Mass not palpable. Coarse rhonchi throughout bilateral lung george. CARDIOVASCULAR: First and second sounds noted. No edema. ABDOMEN: Soft, nontender. Liver and spleen not palpable. PSYCHIATRY: Alert and oriented x3. Mood and affect normal. Blood glucose 120. Chest x-ray slight worsening of the patient's alveolar air space. ASSESSMENT: 1. Acute severe chronic obstructive pulmonary disease exacerbation in a current smoker, slow to respond. 2. Bilateral pneumonia, consider gram-negative organism. 3. Metabolic acidosis ( ). 4. Hyperglycemia secondary to steroids. 5. Leukocytosis secondary to steroids. 6. Obesity; body mass index of 34.7. 7. Chronic nicotine dependence, patient is a smoker. PLAN: We will continue IV antibiotics and IV steroids. Pulmonology consulted, await their input. We will monitor. Patient was seen and examined by nurse practitioner, Molly Allen, and all elements of the case discussed with attending, Dr. Miller. I performed a history and physical examination of this patient and discussed the same with the dictator. I agree with the dictator's note. Any additional findings/opinions, etc. will be noted.
[2016-12-07] MEDS: ACETAMINOPHEN TAB 325 MG TAB PO PRN (22:42)
[2016-12-08] MEDS: PIPERACILLIN-TAZOBACTAM 3.375 GM in DEXTROSE/WATER 1 50ML.BAG IVPB SCH ×3 (00:23→16:43)
[2016-12-08] MEDS: methylPREDNISolone SOD SUCCI 40 MG/ML 1 ML VIAL IV SCH ×2 (01:11→14:16)
[2016-12-08 07:29] LABS: Glucose,Whole Blood 119 mg/dL (75-99)
[2016-12-08] MEDS: SYMBICORT 160-4.5 MCG INHALER INHALATION SCH ×2 (08:03→21:36)
[2016-12-08] MEDS: IPRATROPIUM-ALBUTEROL 3 ML NEB INHALATION SCH ×4 (08:03→21:36)
[2016-12-08] MEDS: guaiFENesin 600 MG TABLET.ER PO SCH ×2 (08:34→21:11)
[2016-12-08] MEDS: NICOTINE 21MG/24HR PATCH TRANSDERM SCH (08:34)
[2016-12-08] MEDS: INSULIN LISPRO (humaLOG) 300 UNIT/3 ML VIAL SQ SCH ×4 (08:34→21:10)
[2016-12-08] MEDS: PANTOPRAZOLE 40 MG TABLET PO SCH (08:34)
[2016-12-08] MEDS: ACETAMINOPHEN TAB 325 MG TAB PO PRN ×2 (08:34→21:11)
[2016-12-08] MEDS: ENOXAPARIN 40 MG/0.4 ML SYRINGE SQ SCH (08:34)
[2016-12-08 09:05] LABS: Aty Lym Flag Slight; CH 28.9; CHCM 34.8; HCT 35.4 % (34.0-46.0); HDW 3.31; HGB 12.3 gm/dL (11.4-16.0); MCHC 34.6 g/dL (31.0-37.0); MCV 83.6 fL (80.0-100.0); Mean Platelet Volume 7.3; RBC 4.24 m/uL (3.80-5.40); WBC 11.7 k/uL (3.8-10.6); WBC (Perox) 12.27
[2016-12-08 09:14] LABS: Anion Gap 9 mmol/L; Blood Urea Nitrogen 15 mg/dL (7-17); Carbon Dioxide 23 mmol/L (22-30); Chloride 108 mmol/L (98-107); Glucose 124 mg/dL (74-99); Non-African American GFR(MDRD) >60 (>60 ml/min/1.73 sqM); Potassium 3.8 mmol/L (3.5-5.1); Sodium 140 mmol/L (137-145)
--- NOTE | 2016-12-08 09:30 | P.PN ---
Subjective This is a 51-year-old female patient being seen, evaluated and examined today on the fourth floor. This patient came into the hospital with fever she was diagnosed with sinusitis and severe bronchitis and was discharged home on Levaquin and breathing treatments. The patient went home and never filled her prescriptions and subsequently ended up back in the emergency room and she was noted to have a high-grade fever and was admitted again with levofloxacin and systemic steroids as well as nebulizer treatments. The patient states she had increasing severity of her shortness of breath. She became short of breath with any type of exertion or extensive conversation. The patient is a current every day smoker smokes at least 1 pack per day and she has smoked for over 30 years the patient stated that she quit about 6-7 days ago due to her shortness of breath. Upon examination the patient's resting up in bed on 2 L of supplemental oxygen via nasal cannula. The patient denies any home oxygen use. The patient states she does have a cough that is congested however she has a difficult time bringing up any secretions at this time. Patient did get Mucinex yesterday and this morning and feels that it is starting to work. Patient does not feel like she is at a fine. She is still requiring supplemental oxygen. Objective - Vital Signs Vital signs: Vital Signs Temp 96.6 F L 12/08/16 07:00 Pulse 84 12/08/16 08:15 Resp 16 12/08/16 07:00 BP 150/70 12/08/16 07:00 Pulse Ox 87 L 12/08/16 08:15 Intake & Output 12/07/16 12/08/16 12/08/16 18:59 06:59 18:59 Intake Total 250 Balance 250 Weight 86 kg Intake: Oral 250 Other: Voiding Method Toilet # Voids 3 1 - Exam GENERAL EXAM: Alert, active, comfortable in no apparent distress. HEAD: Normocephalic. EYES: Normal reaction of pupils, equal size. NOSE: Clear with pink turbinates. THROAT: No erythema or exudates. NECK: No masses, no JVD. CHEST: No chest wall deformity. LUNGS: Lungs noted to have decreased air entry. Patient does have some faint scattered rhonchi and minimal expiratory wheezes. Bases diminished. CVS: S1 and S2 normal with no audible mumurs, regular rhythm. ABDOMEN: No hepatosplenomegaly, normal bowel sounds, no guarding or rigidity. EXTREMITIES: No edema noted, pedal pulses palpable. SKIN: No rashes CENTRAL NERVOUS SYSTEM: No focal deficits, tone is normal in all 4 extremities. - Labs CBC & Chem 7: 12/08/16 08:26 12/08/16 08:26 Labs: Abnormal Lab Results - Last 24 Hours (Table) 12/07/16 12/07/16 12/07/16 Range/Units 11:45 17:01 20:45 WBC (3.8-10.6) k/uL Chloride (98-107) mmol/L Creatinine (0.52-1.04) mg/dL Glucose (74-99) mg/dL POC Glucose (mg/dL) 120 H 134 H 143 H (75-99) mg/dL Calcium (8.4-10.2) mg/dL 12/08/16 12/08/16 12/08/16 Range/Units 07:23 08:26 08:26 WBC 11.7 H (3.8-10.6) k/uL Chloride 108 H (98-107) mmol/L Creatinine 0.50 L (0.52-1.04) mg/dL Glucose 124 H (74-99) mg/dL POC Glucose (mg/dL) 119 H (75-99) mg/dL Calcium 8.0 L (8.4-10.2) mg/dL Microbiology - Last 24 Hours (Table) 12/04/16 20:40 Blood Culture - Preliminary Blood No Growth after 72 hours 12/06/16 15:03 Blood Culture - Preliminary Blood No Growth after 24 hours Assessment and Plan Plan: Assessment Acute exacerbation of chronic obstructive pulmonary disease Acute hypoxic respiratory failure Probable bilateral pneumonia, probable mixed gram-negative Tracheobronchitis Metabolic acidosis Leukocytosis Chronic nicotine dependence Obesity Plan Medications have been reviewed and will be continued as ordered. Continue with IV steroids and broad-spectrum antibiotics. We will obtain a sputum culture. Blood cultures pending. Continue with scheduled Mucinex to help with secretions. Continue with pulmonary hygiene, coughing and deep breathing exercises, and supportive care. Supplemental oxygen to maintain oxygen saturations of 92% or better. Continue with incentive spirometer. Encourage ambulation and increase activity as tolerated. Continue nebulizer treatments. GI and DVT prophylaxis. We will continue to monitor labs/results and adjust treatment as necessary. Further recommendations pending. I performed an examination of the patient and discussed their management with the nurse practitioner. I have reviewed the nurse practitioner's note and agree with the documented findings and plan of care.
[2016-12-08 10:49] LABS: Add Differential Manual Differential
[2016-12-08 10:54] LABS: Band Neutrophils % 0.5 %; Metamyelocytes % 2.5 %; Nucleated Red Blood Cells 0 /100 WBC (0-0); Total Cells Counted 200
[2016-12-08 12:52] LABS: Glucose,Whole Blood 166 mg/dL (75-99)
--- NOTE | 2016-12-08 15:18 | PN ---
DATE OF SERVICE: 12/07/2016 ATTENDING NOTE: This patient was seen and examined by me on 12/07/2016. I reviewed the note of my nurse practitioner, Ms. Allen, discussed initial finding with her and additional findings below. This patient was admitted with COPD exacerbation and what is not felt to be pneumonia with sepsis. Still has got a cough, tired. On examination T-max 102.2, blood pressure decreased with some coarse breath sounds. Sitting up, tired appearing. Chest x-ray shows bilateral infiltrates. ASSESSMENT: 1. Acute chronic obstructive pulmonary disease exacerbation, slow to respond. 2. Bilateral pneumonia, consider gram-negative organism. PLAN: Patient is to continue the IV antibiotics, steroids. Patient is put on Zosyn. Pulmonary was consulted. Care was discussed with the patient's is at the bedside. Will follow.
[2016-12-08 17:21] LABS: Glucose,Whole Blood 115 mg/dL (75-99)
[2016-12-08] MEDS: MELATONIN 1 MG TAB PO SCH (21:11)
[2016-12-08 21:17] LABS: Glucose,Whole Blood 132 mg/dL (75-99)
--- NOTE | 2016-12-08 21:34 | PN ---
DATE OF SERVICE: 12/08/2016. PRESENTING COMPLAINT: Severe cough and fever. INTERVAL HISTORY: This is a patient who is a smoker presented with COPD exacerbation. Sepsis due to severe tracheobronchitis. Today patient continues to have a cough. Sitting up in the chair and continues to tell us that she is having a poor appetite. at the bedside. Review of systems done for constitutional, cardiovascular, GI, pulmonary, with relevant findings as above. CURRENT MEDICATIONS: Zosyn, Solu-Medrol 40 mg IV. Habitrol 21 mg 24 hour patch daily. PHYSICAL EXAMINATION: VITAL SIGNS: Temperature 96.6, pulse 75, respiratory rate 16, blood pressure 150/70, oxygen saturation 91% on 2 liters nasal cannula. GENERAL APPEARANCE: Patient sitting up in chair. No acute distress. Looks tired. EYES: Pupils equal. Conjunctivae normal. NECK: JVD not raised. Mass not palpable. CARDIOVASCULAR: First and second sounds noted. No edema. ABDOMEN: Soft, nontender. Liver and spleen not palpable. PSYCHIATRY: Alert and oriented x3. Mood affect normal. Patient appears tired. INVESTIGATIONS: White blood cell count 11.7. Blood glucose 156. ASSESSMENT: 1. Acute chronic obstructive pulmonary disease exacerbation, slow to respond., Bilateral pneumonia consider gram-negative organism. 2. Metabolic acidosis. 3. Hyperglycemia secondary to steroids. 4. Obesity; body mass index of 34.7. 5. Leukocytosis secondary to steroids. 6. Chronic nicotine dependence, patient is a smoker. PLAN: Continue with IV antibiotics and steroids. Pulmonology conditions to follow. Patient was seen and examined by nurse practitioner progress and all elements of the case discussed with attending, Dr. Miller. I performed a history and physical examination of this patient and discussed the same with the dictator. I agree with the dictator's note. Any additional findings/opinions, etc. will be noted.
--- NOTE | 2016-12-08 22:23 | PN ---
DATE OF SERVICE: 12/08/2016 ATTENDING NOTE: This patient was seen and examined by me earlier today. I reviewed the note of my nurse practitioner, Ms. Allen, discussed and initialed findings as below. The patient was admitted with COPD exacerbation, bilateral pneumonia, still has a cough. Fevers are down. Feels easily gets short-winded. Appetite is not the best. On examination, afebrile. LUNGS: Decreased breath sounds and coarse. Decreased wheezing. PSYCH: Alert and oriented x3. Mood and affect somewhat low-appearing. ASSESSMENT: 1. Acute severe chronic obstructive pulmonary disease exacerbation, slow to respond. 2. Bilateral pneumonia, consider gram-negative organism. PLAN: Continue current medication and treatment plan, including antibiotics. Pulmonary saw the patient. Care was discussed with patient at length. Encouraged to ambulate.
[2016-12-09] MEDS: PIPERACILLIN-TAZOBACTAM 3.375 GM in DEXTROSE/WATER 1 50ML.BAG IVPB SCH ×3 (00:08→15:46)
[2016-12-09] MEDS: methylPREDNISolone SOD SUCCI 40 MG/ML 1 ML VIAL IV SCH ×2 (00:09→12:11)
[2016-12-09 07:54] LABS: Glucose,Whole Blood 145 mg/dL (75-99)
[2016-12-09] MEDS: guaiFENesin 600 MG TABLET.ER PO SCH ×2 (08:19→21:09)
[2016-12-09] MEDS: NICOTINE 21MG/24HR PATCH TRANSDERM SCH (08:19)
[2016-12-09] MEDS: PANTOPRAZOLE 40 MG TABLET PO SCH (08:19)
[2016-12-09] MEDS: ENOXAPARIN 40 MG/0.4 ML SYRINGE SQ SCH (08:19)
[2016-12-09] MEDS: INSULIN LISPRO (humaLOG) 300 UNIT/3 ML VIAL SQ SCH ×4 (08:20→21:09)
[2016-12-09 08:21] LABS: Aty Lym Flag Slight; CH 28.8; CHCM 34.2; HCT 34.8 % (34.0-46.0); HDW 3.15; HGB 11.6 gm/dL (11.4-16.0); MCH 28.3 pg (25.0-35.0); MCHC 33.3 g/dL (31.0-37.0); MCV 84.9 fL (80.0-100.0); Mean Platelet Volume 7.1; RDW 14.4 % (11.5-15.5); WBC 10.1 k/uL (3.8-10.6); WBC (Perox) 10.51
[2016-12-09 08:28] LABS: Anion Gap 5 mmol/L; Blood Urea Nitrogen 16 mg/dL (7-17); Calcium 7.9 mg/dL (8.4-10.2); Carbon Dioxide 29 mmol/L (22-30); Chloride 107 mmol/L (98-107); Glucose 130 mg/dL (74-99); Non-African American GFR(MDRD) >60 (>60 ml/min/1.73 sqM); Potassium 4.2 mmol/L (3.5-5.1); Sodium 141 mmol/L (137-145)
[2016-12-09] MEDS: IPRATROPIUM-ALBUTEROL 3 ML NEB INHALATION SCH ×4 (09:07→19:50)
[2016-12-09] MEDS: FUROSEMIDE 10 MG/ML 2 ML VIAL IV SCH ×2 (12:11→17:41)
[2016-12-09 12:20] LABS: Glucose,Whole Blood 122 mg/dL (75-99)
[2016-12-09 12:24] LABS: Add Differential Manual Differential
[2016-12-09 12:26] LABS: Nucleated Red Blood Cells 0 /100 WBC (0-0); RBC Morphology Normal; Total Cells Counted 100
[2016-12-09] MEDS: SYMBICORT 160-4.5 MCG INHALER INHALATION SCH ×2 (12:49→19:52)
--- NOTE | 2016-12-09 13:46 | PN ---
DATE OF SERVICE: 12/09/2016 PRESENTING COMPLAINT: Severe cough and fever. INTERVAL HISTORY: This is a patient who is a smoker, presented with COPD exacerbation. Sepsis due to severe tracheal bronchitis. Today the patient has a mild cough. Lying in the bed after a shower. Continues to have a poor appetite. at the bedside. Review of systems done for constitutional, cardiovascular, GI, and pulmonary with relevant findings as above. CURRENT MEDICATIONS: Zosyn, Solu-Medrol 40 mg IV, Habitrol 21 mg q.24 hour patch. PHYSICAL EXAM: VITAL SIGNS: Temperature 96.9, pulse 74, respiratory rate 20, blood pressure 153/85, oxygen saturation 93% on room air. GENERAL APPEARANCE: Patient is lying in bed after shower, looks spent, mildly short of breath. EYES: Pupils equal. Conjunctivae are normal. NECK: JVD raised. Mass not palpable. CARDIOVASCULAR: First and second sounds noted. No edema. ABDOMEN: Soft, nontender. Liver and spleen not palpable. PSYCHIATRY: Alert and oriented x3. Mood and affect are normal. Patient appears tired. INVESTIGATIONS: White blood cell count 10.1. Accu-Cheks noted. ASSESSMENT: 1. Acute severe chronic obstructive pulmonary disease exacerbation, slow to respond. 2. Bilateral pneumonia, consider gram-negative organism. 3. Metabolic acidosis. 4. Hyperglycemia, secondary to steroids. 5. Obesity; body mass index of 34.7. 6. Leukocytosis secondary to steroids. 7. Chronic nicotine dependence, patient is smoker. PLAN: Patient received 20 mg of IV Lasix q.6 hours x2 doses secondary to some fluid overload. Patient encouraged to be up as she can as well as resting when she feels she needs to, to increase her stamina. at the bedside in agreement. Will follow. Patient seen and examined by nurse practitioner, Molly Allen, and all elements of the case were discussed with attending, Dr. Miller.
--- NOTE | 2016-12-09 14:23 | PN ---
DATE OF SERVICE: 12/09/2016 ATTENDING NOTE: This patient was seen and examined by me. I reviewed the note by nurse practitioner, Ms. Allen. Discussed additional findings below. This patient admitted with COPD exacerbation and sepsis from bilateral pneumonia, cough is getting better, did take her shower today. Easily gets short-winded. On exam, lungs decreased breath sounds, some coarse crackles. Pulse ox 93% on room air. Lying in bed. Abdomen is soft, nontender. LUNGS: Some basal crackles. NECK: JVD is raised. Edema is present. ASSESSMENT: 1. Acute fluid overload from patient's IV fluids. 2. Acute chronic obstructive pulmonary disease exacerbation. 3. Bilateral pneumonia, presented with gram-negative organism causing sepsis on presentation. PLAN: At this point, will DC the IV fluids, give patient Lasix 20 mg IV x2. Encourage the patient to be out of bed. Care was discussed with the patient and . Patient will need at least 24 to 48 hours further stay in the hospital. Repeat electrolytes tomorrow.
--- NOTE | 2016-12-09 16:17 | PN ---
DATE OF SERVICE: 12/09/2016 She is feeling slightly better. She is less short of breath, but continues to have some cough and wheezing. On physical examination, blood pressure is 152/85, respiratory rate 20, pulse of 74, temperature 96.9. O2 sat on room air is 93%. HEENT is unremarkable. Chest reveals prolonged expiration with occasional wheeze on end expiration. Cardiovascular system reveals an S1, S2. ABDOMEN: Soft. There is no pedal edema. IMPRESSION: 1. Chronic obstructive pulmonary disease with acute exacerbation. 2. Pneumonia, bilateral. 3. Tracheobronchitis. 4. Possible asthma. Continue IV steroids, and antibiotics. Increase her activity level. Her prognosis at this time is fair.
[2016-12-09 17:41] LABS: Glucose,Whole Blood 154 mg/dL (75-99)
[2016-12-09 20:49] LABS: Glucose,Whole Blood 186 mg/dL (75-99)
[2016-12-09] MEDS: ACETAMINOPHEN TAB 325 MG TAB PO PRN (21:09)
[2016-12-09] MEDS: MELATONIN 1 MG TAB PO SCH (21:09)
[2016-12-10] MEDS: PIPERACILLIN-TAZOBACTAM 3.375 GM in DEXTROSE/WATER 1 50ML.BAG IVPB SCH ×3 (00:14→15:42)
[2016-12-10] MEDS: methylPREDNISolone SOD SUCCI 40 MG/ML 1 ML VIAL IV SCH ×2 (00:14→12:54)
[2016-12-10 07:56] LABS: Glucose,Whole Blood 149 mg/dL (75-99)
[2016-12-10] MEDS: SYMBICORT 160-4.5 MCG INHALER INHALATION SCH ×2 (08:01→20:01)
[2016-12-10] MEDS: IPRATROPIUM-ALBUTEROL 3 ML NEB INHALATION SCH ×4 (08:01→20:01)
[2016-12-10 08:14] LABS: Anion Gap 7 mmol/L; Blood Urea Nitrogen 18 mg/dL (7-17); Calcium 8.4 mg/dL (8.4-10.2); Carbon Dioxide 31 mmol/L (22-30); Chloride 103 mmol/L (98-107); Glucose 146 mg/dL (74-99); Non-African American GFR(MDRD) >60 (>60 ml/min/1.73 sqM); Potassium 4.1 mmol/L (3.5-5.1); Sodium 141 mmol/L (137-145)
[2016-12-10 08:15] LABS: CH 28.6; CHCM 33.9; HCT 34.6 % (34.0-46.0); HDW 3.07; HGB 11.7 gm/dL (11.4-16.0); Immature Gran Flag Slight; MCH 28.6 pg (25.0-35.0); MCHC 33.7 g/dL (31.0-37.0); MCV 84.9 fL (80.0-100.0); Mean Platelet Volume 7.2; RBC 4.08 m/uL (3.80-5.40); RDW 14.2 % (11.5-15.5); WBC 8.9 k/uL (3.8-10.6)
[2016-12-10] MEDS: NICOTINE 21MG/24HR PATCH TRANSDERM SCH (08:24)
[2016-12-10] MEDS: guaiFENesin 600 MG TABLET.ER PO SCH ×2 (08:24→21:53)
[2016-12-10] MEDS: PANTOPRAZOLE 40 MG TABLET PO SCH (08:24)
[2016-12-10] MEDS: INSULIN LISPRO (humaLOG) 300 UNIT/3 ML VIAL SQ SCH ×4 (08:24→21:54)
[2016-12-10] MEDS: ENOXAPARIN 40 MG/0.4 ML SYRINGE SQ SCH (08:25)
[2016-12-10] MEDS ORDERED: ERGOCALCIFEROL 50,000 UNIT CAP PO SCH (09:00)
[2016-12-10 10:15] LABS: Add Differential Manual Differential
[2016-12-10 10:17] LABS: Nucleated Red Blood Cells 0 /100 WBC (0-0); RBC Morphology Normal; Total Cells Counted 100
[2016-12-10 12:21] LABS: Glucose,Whole Blood 173 mg/dL (75-99)
--- NOTE | 2016-12-10 14:39 | PN ---
DATE OF SERVICE: 12/10/2016 PRESENTING COMPLAINT: Severe cough and fever. INTERVAL HISTORY: This patient was admitted with COPD exacerbation and sepsis for bilateral pneumonia. Today patient has a mild cough, sitting at the bedside. No acute distress. Has some concerns regarding home oxygen and its use. States her appetite is improved today. Ambulating in the hallway, however, does have some shortness of breath. Review of systems done for constitutional, cardiovascular, GI, and pulmonary with relevant findings as above. CURRENT MEDICATIONS: 1. Zosyn. 2. Solu-Medrol 40 mg IV. 3. Habitrol 21 mg q.24 hour patch. PHYSICAL EXAMINATION: VITAL SIGNS: Temperature 96.5, pulse 58, respirations 20, blood pressure 140/90, oxygen saturation 96% on 2 liters nasal cannula. GENERAL APPEARANCE: Patient is sitting at the bedside. No acute distress. Minimal amounts of shortness of breath. EYES: Pupils equal. Conjunctivae normal. NECK: JVD not raised. Mass not palpable. CARDIOVASCULAR: First and second sounds noted. No edema. ABDOMEN: Soft, nontender. Liver and spleen not palpable. PSYCHIATRY: Alert and oriented x3. Mood and affect are normal. Patient appears more awake today. INVESTIGATIONS: White blood cell count 8.9. BUN 18, creatinine 0.50. Accu-Cheks noted. ASSESSMENT: 1. Acute fluid overload from IV fluids. 2. Acute chronic obstructive pulmonary disease exacerbation. 3. Bilateral pneumonia present with gram-negative organism causing sepsis on presentation. 4. Metabolic acidosis. 5. Hyperglycemia secondary to steroids. 6. Obesity; body mass index of 34.7. 7. Leukocytosis secondary to steroids. 8. Chronic nicotine dependence, patient is a smoker. PLAN: IV fluids discontinued. Continue to encourage patient to be out of the bed. Plan of care was discussed with patient and . Will follow. Patient was seen and examined by nurse practitioner, Molly Allen, and all elements of the case discussed with attending, Dr. Miller. I performed a history and physical examination of this patient and discussed the same with the dictator. I agree with the dictator's note. Any additional findings/opinions, etc. will be noted.
[2016-12-10 17:10] LABS: Glucose,Whole Blood 136 mg/dL (75-99)
--- NOTE | 2016-12-10 19:17 | PN ---
DATE OF SERVICE: 12/10/2016. She was seen on 12/10/2016. She has remained hemodynamically stable and is less short of breath. On physical examination, her vitals are stable. He is afebrile. Chest she has a right-sided wheeze. Cardiovascular S1 and S2. ABDOMEN: Soft. There is no edema. IMPRESSION: 1. Chronic obstructive pulmonary disease with acute exacerbation. 2. Bilateral pneumonia. 3. Tracheobronchitis. 4. Possibly asthma. Continue IV steroids and antibiotics. Increase her activity level. Prognosis at this time is fair.
[2016-12-10 20:56] LABS: Glucose,Whole Blood 218 mg/dL (75-99)
[2016-12-10] MEDS: MELATONIN 1 MG TAB PO SCH (21:53)
[2016-12-10] MEDS: AMOXIC-POT CLAV 875-125MG 1 EACH TAB PO SCH (21:54)
[2016-12-11 07:05] LABS: Glucose,Whole Blood 80 mg/dL (75-99)
[2016-12-11 07:16] VITALS: BP 134/79; RESP 18; TEMP 97.3
--- NOTE | 2016-12-11 07:44 | PN ---
DATE OF SERVICE: 12/10/2016 Attending note: This patient was seen examined by me earlier today. Reviewed the note of my nurse practitioner Ms. Allen and discussed additional findings below. Admitted with bilateral lobe pneumonia, sepsis, and COPD exacerbation. Patient was in fluid overload yesterday. IV fluids was discontinued, given 2 doses of Lasix. The patient doing much better now. Tolerating a diet. Up in the hallway. On examination, lungs improved air entry. CARDIOVASCULAR: First and second sounds normal. Decreased edema. ASSESSMENT: 1. Acute fluid overload from IV fluids much improved. 2. Acute chronic obstructive pulmonary disease exacerbation improved. 3. Possible pneumonia with gram-negative organism, suspected sepsis. Clinical improvement. PLAN: Care was discussed with the patient at the bedside. During overall much better.
[2016-12-11 07:59] LABS: Basophils # (A) 0.1 k/uL (0-0.2); Basophils % (A) 1 %; CH 28.5; CHCM 34.6; Eosinophils # (A) 0.1 k/uL (0-0.7); Eosinophils % (A) 1 %; HCT 35.9 % (34.0-46.0); HDW 3.17; HGB 12.3 gm/dL (11.4-16.0); Luc # (Auto) 0.38; Luc % (Auto) 3; Lymphocytes # (A) 2.7 k/uL (1.0-4.8); Lymphocytes % (A) 20 %; MCH 28.4 pg (25.0-35.0); MCHC 34.2 g/dL (31.0-37.0); MCV 82.9 fL (80.0-100.0); Mean Platelet Volume 6.6; Monocytes # (A) 0.6 k/uL (0-1.0); Monocytes % (A) 4 %; Neutrophils # (A) 9.8 k/uL (1.3-7.7); Neutrophils % (A) 72 %; RBC 4.34 m/uL (3.80-5.40); RDW 13.7 % (11.5-15.5); WBC 13.7 k/uL (3.8-10.6)
--- NOTE | 2016-12-11 08:17 | XR ---
EXAMINATION TYPE: XR chest 2V DATE OF EXAM: 12/11/2016 HISTORY: pneumonia. REFERENCE: Previous study dated 12/07/2016. FINDINGS: There is continuing right lower lobe airspace disease. There is volume loss in the right mi ddle lobe. Aeration of the lungs has improved slightly. Heart size is upper limits of normal. I could not exclude a small right effusion. IMPRESSION: IMPROVED AERATION, BOTH LUNGS.
[2016-12-11] MEDS: IPRATROPIUM-ALBUTEROL 3 ML NEB INHALATION SCH ×2 (08:52→12:12)
[2016-12-11] MEDS: SYMBICORT 160-4.5 MCG INHALER INHALATION SCH (08:52)
[2016-12-11] MEDS ORDERED: predniSONE 20 MG TAB PO SCH (09:00)
[2016-12-11] MEDS: INSULIN LISPRO (humaLOG) 300 UNIT/3 ML VIAL SQ SCH ×2 (09:10→13:04)
[2016-12-11] MEDS: AMOXIC-POT CLAV 875-125MG 1 EACH TAB PO SCH (09:12)
[2016-12-11] MEDS: PANTOPRAZOLE 40 MG TABLET PO SCH (09:12)
[2016-12-11] MEDS: NICOTINE 21MG/24HR PATCH TRANSDERM SCH (09:12)
[2016-12-11] MEDS: ENOXAPARIN 40 MG/0.4 ML SYRINGE SQ SCH (09:12)
[2016-12-11] MEDS: guaiFENesin 600 MG TABLET.ER PO SCH (09:12)
[2016-12-11 09:16] LABS: Anion Gap 10 mmol/L; Calcium 8.5 mg/dL (8.4-10.2); Carbon Dioxide 25 mmol/L (22-30); Chloride 107 mmol/L (98-107); Glucose 79 mg/dL (74-99); Non-African American GFR(MDRD) >60 (>60 ml/min/1.73 sqM); Sodium 142 mmol/L (137-145)
[2016-12-11 09:25] LABS: Blood Urea Nitrogen 19 mg/dL (7-17); Potassium 4.2 mmol/L (3.5-5.1)
[2016-12-11 12:13] VITALS: PULSE 64
[2016-12-11 12:20] LABS: Glucose,Whole Blood 89 mg/dL (75-99)
--- NOTE | 2016-12-11 12:42 | PN ---
DATE OF SERVICE: 12/11/2016 Ms. Rica Mena is a 51-year-old female, seen, evaluated and examined in the fourth floor. Clinically, patient is doing well, awake and alert, breathing comfortably. Cough, congestion, shortness of breath has improved. Patient had a chest x-ray performed today which is reviewed and compared with the prior x-ray. Improved aeration in both lungs are seen, continue to have right lower lobe infiltrate, though along with volume loss on the right middle lobe. The current medications are reviewed. Laboratory data reviewed as well. On examination, most recent vitals include blood pressure is 134/70, respiratory rate 18, pulse 68, temperature 97, saturation 93%. HEENT: Unremarkable. NECK: Supple. LUNGS: Good air entry bilaterally without significant rales, rhonchi or rub. HEART: Regular rate and rhythm. S1 and S2 audible. ABDOMEN: Soft. No rebound or rigidity. EXTREMITIES: +1 peripheral pulses. NEUROLOGICAL EXAMINATION: Awake and alert. IMPRESSION: 1. Right left-sided pneumonia involving the right lower lobe and right middle lobe. Clinically and radiographically improving. 2. Severe chronic obstructive pulmonary disease, emphysema with history of extensive smoking and nicotine use. 3. Component of fluid overload. PLAN: As above. Continue supportive care. Continue antibiotics. Patient did receive Lasix with which the clinical condition has improved though. Continue antibiotic and steroids; however, IV steroids can be switched to oral, Medrol Dosepak. Agree with Augmentin on outpatient basis. Would recommend followup in 1 week to monitor and observe. Patient will need a repeat chest x-ray on outpatient setting. If have continued to show pneumonia, would consider doing a bronchoscopy. Will follow.
[2016-12-11 14:03] VITALS: BMI 34.7
--- NOTE | 2016-12-12 10:20 | DS ---
DATE OF ADMISSION: 12/04/2016 DATE OF DISCHARGE: 12/11/2016 FINAL DIAGNOSES: 1. Acute chronic obstructive pulmonary disease exacerbation, present on admission in a smoker. 2. Bilateral pneumonia, suspect gram-negative organism causing sepsis, present on admission. 3. Metabolic acidosis. 4. Hyperglycemia secondary to steroids. 5. Obesity, body mass index of 34.7. 6. Leukocytosis secondary to steroids. 7. Chronic nicotine dependence. Patient is a smoker. 8. Acute fluid overload from IV fluids. 9. Acute hypoxic respiratory failure from pneumonia and chronic obstructive pulmonary disease. HOSPITAL COURSE: This patient is a smoker, presented with COPD exacerbation and pneumonia, responded well to antibiotics. Blood cultures were negative. By the time of discharge, patient was pulse oxing well on room air. Patient was counseled extensively about smoking in the presence of the . On exam, LUNGS: Improved air entry. CARDIOVASCULAR: First and second sounds normal. CONSULTATION: Dr. Efra Blake from pulmonary. DISCHARGE MEDICATIONS: 1. Vitamin D2 50,000 units on Sunday. 2. Pepcid 20 mg p.o. b.i.d. 3. Motrin 200 mg every 6 hours p.r.n. 4. Contrave ER , 1 tablet p.o. daily. 5. Ventolin HFA 1 to 2 puffs every 6 hours p.r.n. 6. Symbicort 160/4 .5, 2 puffs b.i.d. 7. Augmentin 875, 1 tablets p.o. q.12, 10 tablets. 8. DuoNeb q.i.d. 9. Nicotine 20-mg patch. 10. Prednisone taper. Follow up with Dr. Maxwell on 12/14/2016. Follow up with Dr. Blake in 1 week. Discharge planning more than 35 minutes.
== END 2016-12-11 14:09 | disposition home or self-care (01) | DRG 871 ==
LOC: EC 19:53 → 4MS4W 21:15
PROVIDERS: ADMIT Hospitalist; ATTEND Hospitalist
DX: A41.9 Sepsis, unspecified organism (principal); J15.6 Pneumonia due to other Gram-negative bacteria; J96.01 Acute respiratory failure with hypoxia; E87.2 Acidosis; J44.0 Chronic obstructive pulmonary disease with (acute) lower respiratory infection; J44.1 Chronic obstructive pulmonary disease with (acute) exacerbation; E87.8 Other disorders of electrolyte and fluid balance, not elsewhere classified; E66.9 Obesity, unspecified; E87.70 Fluid overload, unspecified; F17.210 Nicotine dependence, cigarettes, uncomplicated; T38.0X5A Adverse effect of glucocorticoids and synthetic analogues, initial encounter; Z68.34 Body mass index [BMI] 34.0-34.9, adult; R73.9 Hyperglycemia, unspecified; Z79.1 Long term (current) use of non-steroidal anti-inflammatories (NSAID); Z79.899 Other long term (current) drug therapy
CPT/HCPCS: 36415; 71020; 80048; 80053; 81001; 83036; 83605; 85025; 85027; 87040; 87086; 94640; 94760; 96365; 96372; 99285

== ENCOUNTER → 2017-01-11 | Outpatient (CLI) | payer OTHER ==
--- NOTE | 2017-01-11 13:49 | XR ---
EXAMINATION TYPE: XR chest 2V DATE OF EXAM: 01/11/2017 COMPARISON: 12/11/2016 INDICATION: COPD TECHNIQUE: Frontal and lateral views of the chest are obtained. FINDINGS: The heart size is normal. The pulmonary vasculature is normal. The lungs are clear. Previous right lower lobe infiltrate has resolved. Spondylosis through the mid thoracic spine. IMPRESSION: 1. No acute pulmonary process.
[2017-01-12 11:59] LABS: Alternaria alternata IgE <0.35 kU/L (<0.35); Asperg. fumagatus IgE <0.35 kU/L (<0.35); Asperg. fumagatus IgE Class CLASS 0; Birch(Com.Silvr) IgE Class CLASS 0; Cat Epith & Dander IgE <0.35 kU/L (<0.35); Cat Epith & Dander IgE Class CLASS 0; Clad herbarum IgE <0.35 kU/L (<0.35); Clad herbarum IgE Class CLASS 0; Common Ragweed IgE Class CLASS 0; Dermato. Pteronyssinus Class CLASS 0; Dermato. Pteronyssinus IgE <0.35 kU/L (<0.35); Dermato. farinae IgE <0.35 kU/L (<0.35); Dermato. farinae IgE Class CLASS 0; Maple (Box Elder) IgE <0.35 kU/L (<0.35); Maple (Box Elder) IgE Class CLASS 0; Mountain Cedar IgE <0.35 kU/L (<0.35); Mountain Cedar IgE Class CLASS 0; Mouse Urine IgE Class CLASS 0; Mouse Urine Proteins,IgE <0.35 kU/L (<0.35); Mulberry IgE Class CLASS 0; Nettle IgE <0.35 kU/L (<0.35); Nettle IgE Class CLASS 0; Oak IgE <0.35 kU/L (<0.35); Penicillium notatum IgE Class CLASS 0; Rough Marshelder IgE <0.35 kU/L (<0.35); Rough Marshelder IgE Class CLASS 0; Timothy Grass IgE <0.35 kU/L (<0.35); Timothy Grass IgE Class CLASS 0; White Ash IgE Class CLASS 0
[2017-01-16 23:17] LABS: Alternaria tenius IgG 11.5 mcg/mL (< 13.6); Cladosporium herbarium IgG 58.1 mcg/mL (< 14.7); Phoma ssp. IgG 15.7 mcg/mL (< 6.6); Saccaharomospora viridis Not detected (Not detected); Saccaharopoly. rectivirgula Not detected (Not detected)
== END | disposition home or self-care (01) ==
LOC: RADXRMAIN 12:36
PROVIDERS: ATTEND Internal Medicine Sleep Medicine
DX: J44.9 Chronic obstructive pulmonary disease, unspecified (principal); B44.89 Other forms of aspergillosis
CPT/HCPCS: 71020; 82785; 86001; 86003; 86606; 86609

== ENCOUNTER 2018-10-17 06:45 | Day surgery (SDC) | payer OTHER ==
[2018-10-16 11:25] VITALS: BMI 37.5
[~2018-10-17 06:45] MED LIST: LACTATED RINGERS 1,000 ML IV SCH; LIDOCAINE 1% 20 ML VIAL (10MG/ML) FOR IV START INTRADERMA PRN; MIDAZOLAM (PF) 2 MG/2 ML VIAL IV PRN
[2018-10-17] MEDS ORDERED: LACTATED RINGERS 1,000 ML IV ONE (07:08)
[2018-10-17 07:17] VITALS: TEMP 98.7
[2018-10-17] MEDS ORDERED: LIDOCAINE 1% INJ 10MG/ML (20 ML MDV) ONE (07:42)
[2018-10-17] MEDS ORDERED: PROPOFOL 10 MG/ML 20 ML VIAL IV ONE (07:42)
--- NOTE | 2018-10-17 07:47 | P.GSHP ---
History of Present Illness H&P Date: 10/17/18 Chief Complaint: GERD, screening colonoscopy This is a 52-year-old female who's had complete GERD, epigastric abdominal pain,. Patient presents today for EGD and screening colonoscopy. Past Medical History Past Medical History: COPD, CVA/TIA, GERD/Reflux, Hypertension, Pneumonia Additional Past Medical History / Comment(s): pneumonia 2017, hiatal hernia, TIA 4 years ago-no residual effects, just started BP medication week ago History of Any Multi-Drug Resistant Organisms: None Reported Past Surgical History: Section, Cholecystectomy Past Anesthesia/Blood Transfusion Reactions: No Reported Reaction Smoking Status: Former smoker - Past Family History Father Family Medical History: Blood Disorder Mother Family Medical History: Dementia Medications and Allergies Home Medications Medication Instructions Recorded Confirmed Type Metoprolol Tartrate [Lopressor] 25 mg PO BID 10/16/18 10/17/18 History Ranitidine HCl [Zantac] 150 mg PO BID 10/16/18 10/17/18 History Allergies Allergy/AdvReac Type Severity Reaction Status Date / Time No Known Allergies Allergy Verified 10/17/18 07:17 Surgical - Exam Vital Signs Temp Pulse Resp BP Pulse Ox 98.7 F 61 14 131/60 95 10/17/18 07:15 10/17/18 07:15 10/17/18 07:15 10/17/18 07:15 10/17/18 07:15 - General well developed, well nourished, no distress - Eyes PERRL - ENT normal pinna - Neck no masses - Respiratory normal expansion - Cardiovascular Rhythm: regular - Abdomen Abdomen: soft, non tender Assessment and Plan Assessment: GERD we'll perform EGD. We'll also perform screening colonoscopy.
--- NOTE | 2018-10-17 08:03 | P.OP ---
Date of Procedure: 10/17/18 Preoperative Diagnosis: GERD Screening colonoscopy Postoperative Diagnosis: Antral gastritis Sliding hiatal hernia Mild esophagitis Diverticulosis Procedure(s) Performed: EGD Colonoscopy Anesthesia: MAC Surgeon: Ben Arora Pathology: other (Antrum, esophagus) Condition: stable Disposition: PACU Description of Procedure: Patient's placed on the endoscopy table in the lateral position. She received IV sedation. The gastroscope placed oropharynx and passed in the esophagus into the stomach. Scope then placed through the pylorus. The first and second portion of the duodenum appeared normal. The scope was then brought back the antrum this appeared minimally inflamed and a biopsies was performed. The scope was unretroflexed and remainder of the stomach appeared normal. There was a small sliding hiatal hernia. The GE junction was at 38 7 is. The distal esophagus was mildly inflamed a biopsies performed. The proximal esophagus appeared normal. Scope was withdrawn for patient. Next digital rectal exam was performed which revealed no abnormalities. The flexible colonoscope was then placed patient anus and passed throughout the entire colon. The ileocecal valve was visualized. The cecum, ascending and transverse colon appeared normal. In the descending and sigmoid colon there is moderate diverticular changes. Scope was then brought back the rectum and this appeared normal. Scope was withdrawn for patient.
[2018-10-17 08:12] VITALS: RESP 16
[2018-10-17 08:24] VITALS: BP 122/78; PULSE 65
== END 2018-10-17 08:31 | disposition home or self-care (01) ==
LOC: ORWHC2ENDO 06:45
PROVIDERS: ATTEND Surgery
DX: Z12.11 Encounter for screening for malignant neoplasm of colon (principal); K21.0 Gastro-esophageal reflux disease with esophagitis; I10 Essential (primary) hypertension; J44.9 Chronic obstructive pulmonary disease, unspecified; K29.50 Unspecified chronic gastritis without bleeding; K44.9 Diaphragmatic hernia without obstruction or gangrene; Z86.73 Personal history of transient ischemic attack (TIA), and cerebral infarction without residual deficits; Z87.891 Personal history of nicotine dependence; Z90.49 Acquired absence of other specified parts of digestive tract; Z79.899 Other long term (current) drug therapy
CPT/HCPCS: 88305; 43239; J2001; J2704; G0121

== ENCOUNTER 2019-12-12 09:03 | Observation (INO) | payer OTHER ==
--- NOTE | 2019-12-12 09:49 | XR ---
EXAMINATION TYPE: XR chest 2V DATE OF EXAM: 12/12/2019 COMPARISON: Prior chest x-ray January 11, 2017. Prior chest CT August 23, 2015. HISTORY: History of chronic bronchitis with chest pain. TECHNIQUE: Frontal and lateral views of the chest are obtained. FINDINGS: There is some chronic parenchymal change without suspicious new focal air space opacity, p leural effusion, or pneumothorax seen. The cardiac silhouette size is within normal limits. Promine nt right pericardial fat pad redemonstrated. The osseous structures are intact. IMPRESSION: Chronic changes without acute pulmonary process.
[2019-12-12] MEDS ORDERED: ASPIRIN 81 MG PO STA (10:14)
[2019-12-12] MEDS ORDERED: SODIUM CHLORIDE 0.9% 1,000 ML IV STA (10:14)
--- NOTE | 2019-12-12 10:31 | ED ---
General Adult HPI - General Chief complaint: Chest Pain Stated complaint: Back/side pain Time Seen by Provider: 12/12/19 09:20 Source: patient, RN notes reviewed, old records reviewed Mode of arrival: ambulatory Limitations: no limitations - History of Present Illness Initial comments: 54-year-old female patient past history significant for COPD, former smoker, type 2 diabetes, hypertension presents to ED for evaluation of right lateral rib pain. Patient reports this feels similar to when she has had pleurisy in the past. States this has been ongoing for 3 days. She does report that is worsened range of motion part and she presses on it. Over the same timeframe patient states that she has had mild substernal chest pressure and some associated shortness of breath. Denies any prior heart issues, denies ever having a stress test. Systemic: Pt denies fatigue, fever/chills, rash. Pt denies weakness, night sweats, weight loss. Neuro: Pt denies headache, visual disturbances, syncope or pre-syncope. HEENT: Pt denies ocular discharge or irritation, otalgia, rhinorrhea, pharyngitis or notable lymphadenopathy. Cardiopulmonary: Pt denies heart palpitations, dyspnea on exertion. Abdominal/GI: Pt denies abdominal pain, n/v/d. : Pt denies dysuria, burning w/ urination, frequency/urgency. Denies new onset urinary or bowel incontinence. MSK: Pt denies myalgia, loss of strength or function in extremities. Neuro: Pt denies new onset weakness, paresthesias. - Related Data Home Medications Medication Instructions Recorded Confirmed Metoprolol Tartrate [Lopressor] 25 mg PO BID 10/16/18 12/12/19 Atorvastatin Calcium [Lipitor] 5 mg PO DAILY 12/12/19 12/12/19 Ergocalciferol (Vitamin D2) 50,000 unit PO TABARES 12/12/19 12/12/19 [Drisdol] Famotidine [Pepcid] 20 mg PO HS 12/12/19 12/12/19 Lisinopril [Zestril] 10 mg PO DAILY 12/12/19 12/12/19 metFORMIN HCL 500 mg PO BID 12/12/19 12/12/19 Allergies Allergy/AdvReac Type Severity Reaction Status Date / Time No Known Allergies Allergy Verified 12/12/19 11:20 Review of Systems ROS Statement: Those systems with pertinent positive or pertinent negative responses have been documented in the HPI. ROS Other: All systems not noted in ROS Statement are negative. Past Medical History Past Medical History: COPD, CVA/TIA, Diabetes Mellitus, GERD/Reflux, Hypertension, Pneumonia Additional Past Medical History / Comment(s): pneumonia 2017, hiatal hernia, TIA 4 years ago-no residual effects, just started BP medication week ago History of Any Multi-Drug Resistant Organisms: None Reported Past Surgical History: Section, Cholecystectomy Past Anesthesia/Blood Transfusion Reactions: No Reported Reaction Past Psychological History: No Psychological Hx Reported Smoking Status: Former smoker Past Alcohol Use History: None Reported Past Drug Use History: None Reported - Past Family History Father Family Medical History: Blood Disorder Mother Family Medical History: Dementia General Exam - General Exam Comments Initial Comments: Constitutional: NAD, AOX3, Pt has pleasant affect. HEENT: NC/AT, trachea midline, neck supple. External ears appear normal, without discharge. Mucous membranes moist. Eyes PERRLA, EOM intact. There is no scleral icterus. No pallor noted. Cardiopulmonary: RRR, no murmurs, rubs or gallops, no JVD noted. Lungs CTAB in anterior and posterior george. No peripheral edema. Abdominal exam: Abdomen soft and non-distended. Abdomen non-tender to palpation in all 4 quadrants. Bowel sounds active in LLQ. No hepatosplenomegaly. No ecchymosis Neuro: CN II-XII grossly intact. No nuchal rigidity. No raccon eyes, no howell sign, no hemotympanum. No cervical spinal tenderness. MSK: Right lower lateral rib region mildly tender to palpation. No skin changes. Full active ROM in upper and lower extremities. Limitations: no limitations Course Vital Signs 12/12/19 09:08 Temperature 99.1 F Pulse Rate 71 Respiratory 20 Rate Blood Pressure 152/83 O2 Sat by Pulse 98 Oximetry Medical Decision Making - Medical Decision Making 54-year-old female patient past history significant for COPD, former smoker, type 2 diabetes, hypertension presents to ED for evaluation of right lateral rib pain. Patient reports this feels similar to when she has had pleurisy in the past. States this has been ongoing for 3 days. She does report that is wors ened range of motion part and she presses on it. Over the same timeframe patient states that she has had mild substernal chest pressure and some associated shortness of breath. Denies any prior heart issues, denies ever having a stress test. Patient vital signs are stable, afebrile. Physical exam doesn't display some mild right rib tenderness. No skin changes. Laboratory investigations were conducted different from mildly elevated d-dimer. Troponin is negative. CT chest angiography was obtained, did not display any evidence for acute pulmonary embolism. Doesn't display posterior pneumonic consolidation left lower lobe. Recommend consider covered 19 testing. EKG is within normal sinus rhythm, can't rule out anterior infarct age undetermined. Patient administered aspirin. Mookie admitted for her cardiology evaluation and IV antibiotics. Case discussed with Dr. Fernandes. - Lab Data Result diagrams: 12/12/19 10:19 12/12/19 10:19 Lab Results 12/12/19 12/12/19 12/12/19 Range/Units 10:19 10:19 10:19 WBC 5.8 (3.8-10.6) k/uL RBC 4.50 (3.80-5.40) m/uL Hgb 12.2 (11.4-16.0) gm/dL Hct 37.3 (34.0-46.0) % MCV 83.0 (80.0-100.0) fL MCH 27.1 (25.0-35.0) pg MCHC 32.6 (31.0-37.0) g/dL RDW 13.1 (11.5-15.5) % Plt Count 325 (150-450) k/uL Neutrophils % 54 % Lymphocytes % 34 % Monocytes % 6 % Eosinophils % 3 % Basophils % 1 % Neutrophils # 3.1 (1.3-7.7) k/uL Lymphocytes # 2.0 (1.0-4.8) k/uL Monocytes # 0.3 (0-1.0) k/uL Eosinophils # 0.2 (0-0.7) k/uL Basophils # 0.1 (0-0.2) k/uL PT 9.9 (9.0-12.0) sec INR 1.0 (<1.2) APTT 25.2 (22.0-30.0) sec D-Dimer 0.67 H (<0.60) mg/L FEU Sodium 138 (137-145) mmol/L Potassium 4.7 (3.5-5.1) mmol/L Chloride 107 (98-107) mmol/L Carbon Dioxide 24 (22-30) mmol/L Anion Gap 7 mmol/L BUN 9 (7-17) mg/dL Creatinine 0.47 L (0.52-1.04) mg/dL Est GFR (CKD-EPI)AfAm >90 (>60 ml/min/1.73 sqM) Est GFR (CKD-EPI)NonAf >90 (>60 ml/min/1.73 sqM) Glucose 124 H (74-99) mg/dL Calcium 9.0 (8.4-10.2) mg/dL Magnesium 1.6 (1.6-2.3) mg/dL Total Bilirubin 0.5 (0.2-1.3) mg/dL AST 31 (14-36) U/L ALT 30 (4-34) U/L Alkaline Phosphatase 87 (38-126) U/L Troponin I (0.000-0.034) ng/mL Total Protein 7.4 (6.3-8.2) g/dL Albumin 4.0 (3.5-5.0) g/dL Lipase 69 (23-300) U/L Urine Color Urine Appearance (Clear) Urine pH (5.0-8.0) Ur Specific [place] (1.001-1.035) Urine Protein (Negative) Urine Glucose (UA) (Negative) Urine Ketones (Negative) Urine Blood (Negative) Urine Nitrite (Negative) Urine Bilirubin (Negative) Urine Urobilinogen (<2.0) mg/dL Ur Leukocyte Esterase (Negative) Urine WBC (0-5) /hpf Ur Squamous Epith Cells (0-4) /hpf Urine Bacteria (None) /hpf Urine Mucus (None) /hpf 12/12/19 12/12/19 Range/Units 10:19 10:28 WBC (3.8-10.6) k/uL RBC (3.80-5.40) m/uL Hgb (11.4-16.0) gm/dL Hct (34.0-46.0) % MCV (80.0-100.0) fL MCH (25.0-35.0) pg MCHC (31.0-37.0) g/dL RDW (11.5-15.5) % Plt Count (150-450) k/uL Neutrophils % % Lymphocytes % % Monocytes % % Eosinophils % % Basophils % % Neutrophils # (1.3-7.7) k/uL Lymphocytes # (1.0-4.8) k/uL Monocytes # (0-1.0) k/uL Eosinophils # (0-0.7) k/uL Basophils # (0-0.2) k/uL PT (9.0-12.0) sec INR (<1.2) APTT (22.0-30.0) sec D-Dimer (<0.60) mg/L FEU Sodium (137-145) mmol/L Potassium (3.5-5.1) mmol/L Chloride (98-107) mmol/L Carbon Dioxide (22-30) mmol/L Anion Gap mmol/L BUN (7-17) mg/dL Creatinine (0.52-1.04) mg/dL Est GFR (CKD-EPI)AfAm (>60 ml/min/1.73 sqM) Est GFR (CKD-EPI)NonAf (>60 ml/min/1.73 sqM) Glucose (74-99) mg/dL Calcium (8.4-10.2) mg/dL Magnesium (1.6-2.3) mg/dL Total Bilirubin (0.2-1.3) mg/dL AST (14-36) U/L ALT (4-34) U/L Alkaline Phosphatase (38-126) U/L Troponin I <0.012 (0.000-0.034) ng/mL Total Protein (6.3-8.2) g/dL Albumin (3.5-5.0) g/dL Lipase (23-300) U/L Urine Color Light Yellow Urine Appearance Clear (Clear) Urine pH 6.0 (5.0-8.0) Ur Specific [place] 1.012 (1.001-1.035) Urine Protein Negative (Negative) Urine Glucose (UA) Negative (Negative) Urine Ketones Negative (Negative) Urine Blood Negative (Negative) Urine Nitrite Negative (Negative) Urine Bilirubin Negative (Negative) Urine Urobilinogen <2.0 (<2.0) mg/dL Ur Leukocyte Esterase Moderate H (Negative) Urine WBC 4 (0-5) /hpf Ur Squamous Epith Cells 6 H (0-4) /hpf Urine Bacteria Occasional H (None) /hpf Urine Mucus Rare H (None) /hpf Disposition Clinical Impression: Chest pain Disposition: ADMITTED IP TO THIS HOSP Condition: Serious Is patient prescribed a controlled substance at d/c from ED?: No Referrals: Sussy Jack DO [Primary Care Provider] - 1-2 days
[2019-12-12 10:40] LABS: Basophils # (A) 0.1 k/uL (0-0.2); Basophils % (A) 1 %; Eosinophils # (A) 0.2 k/uL (0-0.7); Eosinophils % (A) 3 %; HCT 37.3 % (34.0-46.0); HGB 12.2 gm/dL (11.4-16.0); Lymphocytes % (A) 34 %; MCH 27.1 pg (25.0-35.0); MCHC 32.6 g/dL (31.0-37.0); Mean Platelet Volume 6.9; Monocytes # (A) 0.3 k/uL (0-1.0); Monocytes % (A) 6 %; Neutrophils # (A) 3.1 k/uL (1.3-7.7); Neutrophils % (A) 54 %; Platelet Count 325 k/uL (150-450); RDW 13.1 % (11.5-15.5); WBC 5.8 k/uL (3.8-10.6)
[2019-12-12 10:48] LABS: ALT 30 U/L (4-34); AST 31 U/L (14-36); African American GFR (CKD) >90 (>60 ml/min/1.73 sqM); Alkaline Phosphatase 87 U/L (38-126); Anion Gap 7 mmol/L; Blood Urea Nitrogen 9 mg/dL (7-17); Carbon Dioxide 24 mmol/L (22-30); Chloride 107 mmol/L (98-107); Glucose 124 mg/dL (74-99); Magnesium 1.6 mg/dL (1.6-2.3); Non-African American GFR(CKD) >90 (>60 ml/min/1.73 sqM); Potassium 4.7 mmol/L (3.5-5.1); Sodium 138 mmol/L (137-145); Total Bilirubin 0.5 mg/dL (0.2-1.3); Total Protein 7.4 g/dL (6.3-8.2)
[2019-12-12 10:50] LABS: Appearance,Urine Clear (Clear); Bacteria,Urine Occasional /hpf; Bilirubin,Urine Negative (Negative); Blood,Urine Negative (Negative); Color,Urine Light Yellow; Glucose,Urine (UA) Negative (Negative); Ketones,Urine Negative (Negative); Leukocyte Esterase,Urine Moderate (Negative); Mucus,Urine Rare /hpf; Nitrite,Urine Negative (Negative); Protein,Urine Negative (Negative); Specific Gravity,Urine 1.012 (1.001-1.035); Squamous Epithelial Cell,Urine 6 /hpf (0-4); Urobilinogen,Urine <2.0 mg/dL (<2.0); WBC,Urine 4 /hpf (0-5)
[2019-12-12 10:51] LABS: Partial Thromboplastin Time 25.2 sec (22.0-30.0); Prothrombin Time 9.9 sec (9.0-12.0)
[2019-12-12 11:29] LABS: D-Dimer 0.67 mg/L FEU (<0.60)
--- NOTE | 2019-12-12 12:14 | CT ---
EXAMINATION TYPE: CT chest angio for PE DATE OF EXAM: 12/12/2019 COMPARISON: Same day chest x-ray and older studies. Prior chest CT August 23, 2015. HISTORY: PE. Positive d-dimer. Back and chest pain. CT DLP: 528.9 mGycm. Automated Exposure Control for Dose Reduction was Utilized. CONTRAST: CTA scan of the thorax is performed with IV Contrast, patient injected with 75 mL of Isovue 370, pulm onary embolism protocol. MIP Images are created on CT scanner and reviewed. FINDINGS: LUNGS: The posterior aspect of the left lower lobe shows a new area of focal groundglass opacity and consolidation running roughly 10 cm in craniocaudal length. Right lung shows focal linear scarring or atelectasis medially near diaphragm. No pleural effusion or pneumothorax seen bilaterally. The trach eobronchial tree is patent. MEDIASTINUM: There is satisfactory enhancement of the pulmonary artery and its branches, there is no CT evidence for pulmonary embolism. There are no greater than 1 cm hilar or mediastinal lymph nodes. There are some prominent but subcentimeter left hilar lymph nodes. No cardiomegaly or pericardial e ffusion is seen. Satisfactory enhancement of the aorta without aneurysm or dissection. OTHER: Small size hiatal hernia. Liver diffusely low dense consistent with fatty infiltration with ch olecystectomy clips. Probable mild hepatomegaly. Mild multilevel spurring in thoracic spine. IMPRESSION: 1. No CT evidence for acute pulmonary embolism. 2. Posterior pneumonic consolidation left lower lobe felt present. Correlate clinically. Consider Cov id-19 testing due to peripheral location.
[2019-12-12] MEDS ORDERED: AZITHROMYCIN 500 MG in SODIUM CHLORIDE 0.9% 250 ML IVPB STA (12:23)
[2019-12-12] MEDS ORDERED: NITROGLYCERIN SL TABS 0.4 MG TAB SUBLINGUAL PRN (12:45)
[2019-12-12 15:19] VITALS: RESP 18
[2019-12-12 16:32] LABS: Glucose,Whole Blood 140 mg/dL (75-99)
--- NOTE | 2019-12-12 16:53 | P.HPIM ---
History of Present Illness Is a pleasant 59-year-old female came in with complaints of her lower rib cage pain which appears to be closely for her although it's at the pleuritic in nature. Mild to moderate pain. In the right posterior and lower thorax sick a fabricio. Has been going on for 3 days patient denied any flulike symptoms patient had a low-grade fever at home patient has temperature of 99.1 here. Does affirm a the chest pain patient had a CT angios the chest which showed some groundglass T and some atelectasis on the left lower lung george there is no evidence of pneumonia. Patient denied any significant cough doesn't have any leukocytosis. COVID 19 PCR was ordered. Review of Systems REVIEW OF SYSTEMS: CONSTITUTIONAL: No fever, no malaise, no fatigue. HEENT: No recent visual problems or hearing problems. Denied any sore throat. CARDIOVASCULAR: No orthopnea, PND, no palpitations, no syncope. PULMONARY: No shortness of breath, no cough, no hemoptysis. GASTROINTESTINAL: No diarrhea, no nausea, no vomiting, no abdominal pain. NEUROLOGICAL: No headaches, no weakness, no numbness. HEMATOLOGICAL: Denies any bleeding or petechiae. GENITOURINARY: Denies any burning micturition, frequency, or urgency. MUSCULOSKELETAL/RHEUMATOLOGICAL: Denies any joint pain, swelling, or any muscle pain. ENDOCRINE: Denies any polyuria or polydipsia. The rest of the 14-point review of systems is negative. Past Medical History Past Medical History: COPD, CVA/TIA, Diabetes Mellitus, GERD/Reflux, Hyperlipidemia, Hypertension, Pneumonia Additional Past Medical History / Comment(s): pneumonia 2017, hiatal hernia, TIA 4 years ago-no residual effects History of Any Multi-Drug Resistant Organisms: None Reported Past Surgical History: Section, Cholecystectomy Past Anesthesia/Blood Transfusion Reactions: No Reported Reaction Past Psychological History: No Psychological Hx Reported Smoking Status: Former smoker Past Alcohol Use History: None Reported Additional Past Alcohol Use History / Comment(s): quit smoking 12-01-16, smoked 1ppd for 30 yrs. Past Drug Use History: None Reported - Past Family History Father Family Medical History: Blood Disorder Mother Family Medical History: Dementia Medications and Allergies Home Medications Medication Instructions Recorded Confirmed Type Metoprolol Tartrate [Lopressor] 25 mg PO BID 10/16/18 12/12/19 History Atorvastatin Calcium [Lipitor] 5 mg PO DAILY 12/12/19 12/12/19 History Ergocalciferol (Vitamin D2) 50,000 unit PO TABARES 12/12/19 12/12/19 History [Drisdol] Famotidine [Pepcid] 20 mg PO HS 12/12/19 12/12/19 History Lisinopril [Zestril] 10 mg PO DAILY 12/12/19 12/12/19 History metFORMIN HCL 500 mg PO BID 12/12/19 12/12/19 History Allergies Allergy/AdvReac Type Severity Reaction Status Date / Time No Known Allergies Allergy Verified 12/12/19 11:20 Physical Exam Vitals: Vital Signs Temp Pulse Resp BP BP Pulse Ox 12/12/19 15:10 18 12/12/19 15:09 96.9 F L 18 137/61 95 12/12/19 09:08 99.1 F 71 20 152/83 98 Intake and Output 12/12/19 12/12/19 12/12/19 06:59 14:59 22:59 Other: Weight 90.718 kg PHYSICAL EXAMINATION: GENERAL: The patient is alert and oriented x3, not in any acute distress. Well developed, well nourished. HEENT: Pupils are round and equally reacting to light. EOMI. No scleral icterus. No conjunctival pallor. Normocephalic, atraumatic. No pharyngeal erythema. No thyromegaly. CARDIOVASCULAR: S1 and S2 present. No murmurs, rubs, or gallops. PULMONARY: Chest is clear to auscultation, no wheezing or crackles. ABDOMEN: Soft, nontender, nondistended, normoactive bowel sounds. No palpable organomegaly. MUSCULOSKELETAL: No joint swelling or deformity. EXTREMITIES: No cyanosis, clubbing, or pedal edema. NEUROLOGICAL: Gross neurological examination did not reveal any focal deficits. SKIN: No rashes. Note: Because of COVID 19 isolation, some of the history and physical exam findings or indirect and obtained from nursing staff, and other physician examinations to avoid unnecessary contact with the patient. Results CBC & Chem 7: 12/12/19 10:19 12/12/19 10:19 Labs: Abnormal Lab Results - Last 24 Hours (Table) 12/12/19 12/12/19 12/12/19 Range/Units 10:19 10:19 10:28 D-Dimer 0.67 H (<0.60) mg/L FEU Creatinine 0.47 L (0.52-1.04) mg/dL Glucose 124 H (74-99) mg/dL POC Glucose (mg/dL) (75-99) mg/dL Ur Leukocyte Esterase Moderate H (Negative) Ur Squamous Epith Cells 6 H (0-4) /hpf Urine Bacteria Occasional H (None) /hpf Urine Mucus Rare H (None) /hpf 12/12/19 Range/Units 16:29 D-Dimer (<0.60) mg/L FEU Creatinine (0.52-1.04) mg/dL Glucose (74-99) mg/dL POC Glucose (mg/dL) 140 H (75-99) mg/dL Ur Leukocyte Esterase (Negative) Ur Squamous Epith Cells (0-4) /hpf Urine Bacteria (None) /hpf Urine Mucus (None) /hpf Thrombosis Risk Factor Assmnt - Choose All That Apply Any of the Below Risk Factors Present?: No Assessment and Plan Plan: -Right-sided pleurisy probably viral etiology suspicion is low for Covid 19 a lthough I cannot completely rule out atypical pneumonia constraining groundglass T's in the CAT scan of the chest. We'll obtain a urine Legionella antigen and the mycoplasma IgM antibody patient will be started on levofloxacin empirically. There is no obvious lobar pneumonia there is a bronchogram on the CAT scan there is some atelectasis in the CAT scan. -hypertension -hyperlipidemia -Chest esophageal reflux disease -COPD without any acute exacerbation DVT prophylaxis early ambulation. For above-mentioned chronic medical problems chronic medical problems patient will be resumed on appropriate home medications
[2019-12-12] MEDS ORDERED: LEVOFLOXACIN 500 MG TAB PO SCH (18:00)
[2019-12-12 20:43] LABS: Glucose,Whole Blood 112 mg/dL (75-99)
[2019-12-12] MEDS ORDERED: FAMOTIDINE 20 MG TAB PO SCH (21:00)
[2019-12-12] MEDS: METOPROLOL TARTRATE 25 MG TAB PO SCH (21:05)
[2019-12-12] MEDS: metFORMIN 500 MG TAB PO SCH (21:06)
[2019-12-12] MEDS ORDERED: ACETAMINOPHEN TAB 325 MG TAB PO PRN (22:34)
[2019-12-13 06:04] LABS: Glucose,Whole Blood 146 mg/dL (75-99)
[2019-12-13 06:22] LABS: HCT 34.2 % (34.0-46.0); HGB 11.4 gm/dL (11.4-16.0); MCH 27.7 pg (25.0-35.0); MCHC 33.3 g/dL (31.0-37.0); MCV 83.3 fL (80.0-100.0); Mean Platelet Volume 6.8; Platelet Count 299 k/uL (150-450); WBC 5.9 k/uL (3.8-10.6)
[2019-12-13 06:37] LABS: African American GFR (CKD) >90 (>60 ml/min/1.73 sqM); Anion Gap 5 mmol/L; Blood Urea Nitrogen 11 mg/dL (7-17); Calcium 8.7 mg/dL (8.4-10.2); Carbon Dioxide 24 mmol/L (22-30); Chloride 109 mmol/L (98-107); Cholesterol 121 mg/dL (<200); Glucose 132 mg/dL (74-99); HDL Cholesterol 28 mg/dL (40-60); LDL Cholesterol,Calculated 69 mg/dL (0-99); Non-African American GFR(CKD) >90 (>60 ml/min/1.73 sqM); Potassium 4.5 mmol/L (3.5-5.1); Sodium 138 mmol/L (137-145); Triglycerides 119 mg/dL (<150)
--- NOTE | 2019-12-13 07:45 | P.CRDCN ---
History of Present Illness History of present illness: This is Dr. Beck dictating a consult on this patient The patient was interviewed and examined IMPRESSION / ASSESSMENT: Atypical chest discomfort, chest heaviness with normal cardiac enzymes Diabetes2 3 normal cardiac enzymes Abnormal chest x-ray PLAN: Continue monitoring on telemetry Treatment of pneumonitis Outpatient cardiac follow-up HPI Patient presented with chest discomfort Lower rib cage pain, pleuritic in nature Chest pain ongoing for 3 days At home she had a temperature 99.1 ROS: No fever chills or rigors, no cough, phlegm or expectoration, no nausea, vomiting or diarrhea, no hematuria, dysuria, no musculoskeletal complaints, no strokes or seizures, no skin lesions. EXAMINATION: 150/57, pulse rate in the 50s afebrile Breath sounds are reduced bilaterally Normal heart sounds No lower extremity edema REVIEW OF LABS, ECG & MEDICAL DATA Labs reviewed sodium 138 potassium 4.5 creatinine 0.48, elevated glucose LDL 69 and HDL 28 Normal white count No pulmonary embolism on CT Posterior pneumonic consolidation left lower lobe She is a diabetic on metformin, hypertension on Zestril, takes Lipitor 5 mg by mouth daily On metoprolol 25 mg by mouth twice a day Past Medical History Past Medical History: COPD, CVA/TIA, Diabetes Mellitus, GERD/Reflux, Hyperlipidemia, Hypertension, Pneumonia Additional Past Medical History / Comment(s): pneumonia 2017, hiatal hernia, TIA 4 years ago-no residual effects History of Any Multi-Drug Resistant Organisms: None Reported Past Surgical History: Section, Cholecystectomy Past Anesthesia/Blood Transfusion Reactions: No Reported Reaction Past Psychological History: No Psychological Hx Reported Smoking Status: Former smoker Past Alcohol Use History: None Reported Additional Past Alcohol Use History / Comment(s): quit smoking 12-01-16, smoked 1ppd for 30 yrs. Past Drug Use History: None Reported - Past Family History Father Family Medical History: Blood Disorder Mother Family Medical History: Dementia Medications and Allergies Home Medications Medication Instructions Recorded Confirmed Type Metoprolol Tartrate [Lopressor] 25 mg PO BID 10/16/18 12/12/19 History Atorvastatin Calcium [Lipitor] 5 mg PO DAILY 12/12/19 12/12/19 History Ergocalciferol (Vitamin D2) 50,000 unit PO TABARES 12/12/19 12/12/19 History [Drisdol] Famotidine [Pepcid] 20 mg PO HS 12/12/19 12/12/19 History Lisinopril [Zestril] 10 mg PO DAILY 12/12/19 12/12/19 History metFORMIN HCL 500 mg PO BID 12/12/19 12/12/19 History Allergies Allergy/AdvReac Type Severity Reaction Status Date / Time No Known Allergies Allergy Verified 12/12/19 11:20 Physical Exam Vitals: Vital Signs Temp Pulse Pulse Resp BP BP Pulse Ox 12/13/19 04:00 98.6 F 57 L 18 115/57 96 12/12/19 23:41 98.8 F 64 18 124/58 96 12/12/19 20:00 98.2 F 68 18 131/65 97 12/12/19 15:10 18 12/12/19 15:09 96.9 F L 18 137/61 95 12/12/19 09:08 99.1 F 71 20 152/83 98 Intake and Output 12/12/19 12/13/19 12/13/19 22:59 06:59 14:59 Intake Total 420 Output Total 400 Balance 420 -400 Intake: Oral 420 Output: Urine 400 Other: Weight 73.7 kg Results 12/13/19 06:06 12/13/19 06:06 Cardiac Enzymes 12/12/19 12/12/19 12/12/19 Range/Units 10:19 10:19 10:19 AST 31 (14-36) U/L Lactate Dehydrogenase 453 (313-618) U/L Troponin I <0.012 (0.000-0.034) ng/mL 12/12/19 12/12/19 Range/Units 14:54 21:30 AST (14-36) U/L Lactate Dehydrogenase (313-618) U/L Troponin I <0.012 <0.012 (0.000-0.034) ng/mL Coagulation 12/12/19 Range/Units 10:19 PT 9.9 (9.0-12.0) sec APTT 25.2 (22.0-30.0) sec Lipids 12/13/19 Range/Units 06:06 Triglycerides 119 (<150) mg/dL Cholesterol 121 (<200) mg/dL HDL Cholesterol 28 L (40-60) mg/dL CBC 12/12/19 12/13/19 Range/Units 10:19 06:06 WBC 5.8 5.9 (3.8-10.6) k/uL RBC 4.50 4.10 (3.80-5.40) m/uL Hgb 12.2 11.4 (11.4-16.0) gm/dL Hct 37.3 34.2 (34.0-46.0) % Plt Count 325 299 (150-450) k/uL Comprehensive Metabolic Panel 12/12/19 12/13/19 Range/Units 10:19 06:06 Sodium 138 138 (137-145) mmol/L Potassium 4.7 4.5 (3.5-5.1) mmol/L Chloride 107 109 H (98-107) mmol/L Carbon Dioxide 24 24 (22-30) mmol/L BUN 9 11 (7-17) mg/dL Creatinine 0.47 L 0.48 L (0.52-1.04) mg/dL Glucose 124 H 132 H (74-99) mg/dL Calcium 9.0 8.7 (8.4-10.2) mg/dL AST 31 (14-36) U/L ALT 30 (4-34) U/L Alkaline Phosphatase 87 (38-126) U/L Total Protein 7.4 (6.3-8.2) g/dL Albumin 4.0 (3.5-5.0) g/dL Current Medications Generic Name Dose Route Start Last Admin Trade Name Freq PRN Reason Stop Dose Admin Acetaminophen 650 mg 12/12/19 22:34 12/12/19 23:06 Tylenol Tab PO 650 mg Q4HR PRN Administration Fever and/ or Pain Aspirin 325 mg 12/13/19 09:00 Aspirin PO DAILY [facility] Atorvastatin Calcium 5 mg 12/13/19 09:00 Lipitor PO DAILY [facility] Famotidine 20 mg 12/12/19 21:00 12/12/19 21:06 Pepcid PO 20 mg HS SYLVIA Administration Levofloxacin 500 mg 12/12/19 18:00 12/12/19 17:04 Levaquin PO 500 mg Q24H SYLVIA Administration Lisinopril 10 mg 12/13/19 09:00 Zestril PO DAILY [facility] Metformin HCl 500 mg 12/12/19 21:00 12/12/19 21:06 Glucophage PO 500 mg BID SYLVIA Administration Metoprolol Tartrate 25 mg 12/12/19 21:00 12/12/19 21:05 Lopressor PO 25 mg BID SYLVIA Administration Nitroglycerin 0.4 mg 12/12/19 12:45 Nitrostat SUBLINGUAL Q5M PRN Chest Pain Intake and Output 12/12/19 12/13/19 12/13/19 22:59 06:59 14:59 Intake Total 420 Output Total 400 Balance 420 -400 Intake: Oral 420 Output: Urine 400 Other: Weight 73.7 kg 12/13/19 06:06 12/13/19 06:06
[2019-12-13] MEDS: metFORMIN 500 MG TAB PO SCH (08:26)
[2019-12-13] MEDS: METOPROLOL TARTRATE 25 MG TAB PO SCH (08:26)
[2019-12-13 08:36] VITALS: TEMP 98
[2019-12-13] MEDS ORDERED: ATORVASTATIN 10 MG TAB PO SCH (09:00)
[2019-12-13] MEDS ORDERED: LISINOPRIL 10 MG TAB PO SCH (09:00)
[2019-12-13] MEDS ORDERED: ASPIRIN 325 MG TAB PO SCH (09:00)
[2019-12-13 11:34] LABS: Glucose,Whole Blood 158 mg/dL (75-99)
[2019-12-13 12:37] VITALS: BP 135/65; PULSE 54
--- NOTE | 2019-12-13 13:36 | P.DS ---
Providers Date of admission: 12/12/19 12:44 Attending physician: Maribell Dejesus Consults: 12/12/19 12:47 Consult Physician Urgent Consulting Provider: Lex Benito Reason/Comments: chest pain, pneumonia Do you want consulting provider notified?: Yes Primary care physician: Sussy [facility] Course: 59-year-old female came in with complaints of her lower rib cage pain which appears to be closely for her although it's at the pleuritic in nature. Mild to moderate pain. In the right posterior and lower thorax sick area. Has been going on for 3 days patient denied any flulike symptoms patient had a low-grade fever at home patient has temperature of 99.1 here. Does affirm a the chest pain patient had a CT angios the chest which showed some groundglass T and some atelectasis on the left lower lung george there is no evidence of pneumonia. Patient denied any significant cough doesn't have any leukocytosis. COVID 19 PCR was ordered. 12/13/2019 I cannot completely rule out atypical pneumonia because of which patient will be discharged on levofloxacin for 5 days.urinary Legionella, mycoplasma IgM and COVID 19 are pending. PHYSICAL EXAMINATION: GENERAL: The patient is alert and oriented x3, not in any acute distress. Well developed, well nourished. HEENT: Pupils are round and equally reacting to light. EOMI. No scleral icterus. No conjunctival pallor. Normocephalic, atraumatic. No pharyngeal erythema. No thyromegaly. CARDIOVASCULAR: S1 and S2 present. No murmurs, rubs, or gallops. PULMONARY: Chest is clear to auscultation, no wheezing or crackles. ABDOMEN: Soft, nontender, nondistended, normoactive bowel sounds. No palpable organomegaly. MUSCULOSKELETAL: No joint swelling or deformity. EXTREMITIES: No cyanosis, clubbing, or pedal edema. NEUROLOGICAL: Gross neurological examination did not reveal any focal deficits. SKIN: No rashes. please of her dementia from yesterday for further details of hospitalization and other medical problems that were addressed during this hospitalization Patient Condition at Discharge: Serious Plan - Discharge Summary Discharge Rx Participant: No New Discharge Prescriptions: New Levofloxacin [Levaquin] 500 mg PO Q24H #5 tab Continue Metoprolol Tartrate [Lopressor] 25 mg PO BID Famotidine [Pepcid] 20 mg PO HS metFORMIN HCL 500 mg PO BID Lisinopril [Zestril] 10 mg PO DAILY Ergocalciferol (Vitamin D2) [Drisdol] 50,000 unit PO TABARES Atorvastatin Calcium [Lipitor] 5 mg PO DAILY Discharge Medication List Metoprolol Tartrate [Lopressor] 25 mg PO BID 10/16/18 [History] Atorvastatin Calcium [Lipitor] 5 mg PO DAILY 12/12/19 [History] Ergocalciferol (Vitamin D2) [Drisdol] 50,000 unit PO TABARES 12/12/19 [History] Famotidine [Pepcid] 20 mg PO HS 12/12/19 [History] Lisinopril [Zestril] 10 mg PO DAILY 12/12/19 [History] metFORMIN HCL 500 mg PO BID 12/12/19 [History] Levofloxacin [Levaquin] 500 mg PO Q24H #5 tab 12/13/19 [Rx] Follow up Appointment(s)/Referral(s): Sussy Jack DO [Primary Care Provider] - 3 Days Patient Instructions/Handouts: Pneumonia (DC) Discharge Disposition: HOME SELF-CARE
== END 2019-12-13 13:13 | disposition home or self-care (01) ==
LOC: EC 09:03 → 1SOBS 12:44 → 3SCARD 13:09
PROVIDERS: ADMIT Internal Medicine; ATTEND Internal Medicine
DX: R07.89 Other chest pain (principal); J44.9 Chronic obstructive pulmonary disease, unspecified; J98.11 Atelectasis; E11.65 Type 2 diabetes mellitus with hyperglycemia; I10 Essential (primary) hypertension; K21.9 Gastro-esophageal reflux disease without esophagitis; K44.9 Diaphragmatic hernia without obstruction or gangrene; R91.8 Other nonspecific abnormal finding of lung field; R09.1 Pleurisy; Z20.828 Contact with and (suspected) exposure to other viral communicable diseases; Z79.84 Long term (current) use of oral hypoglycemic drugs; Z79.899 Other long term (current) drug therapy; Z87.891 Personal history of nicotine dependence; Z87.09 Personal history of other diseases of the respiratory system; Z86.73 Personal history of transient ischemic attack (TIA), and cerebral infarction without residual deficits; Z90.49 Acquired absence of other specified parts of digestive tract; Z98.891 History of uterine scar from previous surgery; Z87.01 Personal history of pneumonia (recurrent); Z81.8 Family history of other mental and behavioral disorders; Z83.2 Family history of diseases of the blood and blood-forming organs and certain disorders involving the immune mechanism
CPT/HCPCS: 96366; 96367; 93005 ×2; 96365; 99285; 36415; 85379; 86738; 80061; 80053; 80048; 87449; 83615; 83690; 83735; 84484; 85025; 85027; 85610; 85730; 81001; 87040; 71046; 71275; G0378 ×2; U0003; J0456; J0696; Q9967

== ENCOUNTER → 2023-07-18 | Outpatient (CLI) | payer BC ==
[2023-07-18 15:29] LABS: ALT 100 U/L (8-44); AST 112 U/L (13-35); Albumin 3.8 g/dL (3.8-4.9); Albumin/Globulin Ratio 1.06 Ratio (1.60-3.17); Alkaline Phosphatase 127 U/L (41-126); BUN/Creat Ratio 18.14 Ratio (12.00-20.00); Blood Urea Nitrogen 12.7 mg/dL (9.0-27.0); Calcium 9.7 mg/dL (8.7-10.3); Carbon Dioxide 24.6 mmol/L (21.6-31.8); Chloride 98 mmol/L (96-109); Chol/HDL Ratio 2.82 Ratio; Globulin 3.6 g/dL (1.6-3.3); Glucose 399 mg/dL (70-110); LDL Cholesterol,Calculated 56.3 mg/dL (0.0-131.0); Potassium 5.1 mmol/L (3.5-5.5); Sodium 135 mmol/L (135-145); Total Bilirubin 0.9 mg/dL (0.3-1.2); Total Protein 7.4 g/dL (6.2-8.2)
[2023-07-18 15:50] LABS: HCT 38.9 % (37.2-46.3); HGB 12.8 g/dL (12.0-15.0); MCH 27.3 pg (27.0-32.0); MCHC 32.9 g/dL (32.0-37.0); MCV 82.9 FL (80.0-97.0); Mean Platelet Volume 10.5 FL (9.5-12.2); NRBC Per 100 WBC 0 X 10*3/uL (0.00-0.01); Platelet Count 383 X 10*3/uL (140-440); RBC 4.69 X 10*6/uL (4.10-5.20); WBC 10.67 X 10*3/uL (4.50-10.00)
[2023-07-18 20:00] LABS: Urine Creatinine 75.7 mg/dL (28.0-217.0)
== END | disposition home or self-care (01) ==
LOC: LABWHC1 08:40
PROVIDERS: ATTEND Family Medicine
DX: E11.9 Type 2 diabetes mellitus without complications (principal); E78.5 Hyperlipidemia, unspecified; K21.9 Gastro-esophageal reflux disease without esophagitis; Z79.899 Other long term (current) drug therapy
CPT/HCPCS: 36415; 80053; 80061; 82043; 82570; 83036; 84443; 85027

== ENCOUNTER → 2024-07-01 | Outpatient (CLI) | payer BC ==
--- NOTE | 2024-07-04 16:28 | MM ---
Reason for Exam: Screening (asymptomatic). Last mammogram was performed 1 year(s) and 9 month(s) ago. Patient History: Menarche at age 10. First Full-Term at age 19. Postmenopausal. Mother had breast cancer, right, age 69. Sister had breast cancer, left, under age 50. Risk Values: Arleen 5 year model risk: 6.2%. NCI Lifetime model risk: 29.4%. Prior Study Comparison: 09/07/2022 Bilateral MG 3D screening mammo w/cad, [facility]. 09/12/2022 Bilateral MG 3D work up w/cad [facility], [facility]. Tissue Density: There are scattered areas of fibroglandular density. Findings: Analyzed By CAD. There is no suspicious group of microcalcifications or new suspicious mass in either breast. Overall Assessment: Negative, BI-RAD 1 Management: Screening Mammogram of both breasts in 1 year. SEE NOTE BELOW IN REGARDS TO PATIENT'S INCREASED 5 YEAR ARLEEN SCORE AND INCREASED LIFETIME RISK SCORE. Patient should continue monthly self-breast exams. A clinical breast exam by your physician is recommended on an annual basis. This exam should not preclude additional follow-up of suspicious palpable abnormalities. Note on Arleen scores and lifetime risk: 1. A Arleen score greater than 3% is considered moderate risk. If this is the case, consider specialist referral to assess eligibility for a risk reducing agent. 2. If overall lifetime risk for the development of breast cancer is 20% or higher, the patient may qualify for future screening with alternating mammogram and breast MRI. [facility], , 07/04/2024 4:25 PM. Electronically signed and approved by: Emerald Mario M.D. Radiologist
== END | disposition home or self-care (01) ==
LOC: RADMAMWWP 09:22
PROVIDERS: ATTEND Family Medicine
DX: Z12.31 Encounter for screening mammogram for malignant neoplasm of breast (principal); Z78.0 Asymptomatic menopausal state; Z80.3 Family history of malignant neoplasm of breast; R92.323 Mammographic fibroglandular density, bilateral breasts
CPT/HCPCS: 77063; 77067